=== PATIENT | female | born 1985 | race Caucasian/White ===

== ENCOUNTER 2021-08-22 18:23 | Outpatient (CLI) | payer MEDICAID, SELFPAY | END 2021-08-22 23:59 | disposition short-term general hospital (02) | PROVIDERS: Referring Provider Family Medicine; Visit Provider Family Medicine | DX: U07.1 COVID-19 (principal); Z20.822 Contact with and (suspected) exposure to COVID-19 | CPT/HCPCS: 87635; U0003; U0005 ==

== ENCOUNTER 2021-09-07 11:47 | Outpatient (CLI) | payer OTHER, SELFPAY ==
--- NOTE | 2021-09-07 11:55 | RAD_ITS ---
STUDY: X-RAY CHEST REASON FOR EXAM: Female, 36 years old. Fever and cough, Covid + TECHNIQUE: PA and lateral views of the chest. COMPARISON: None. FINDINGS: The lungs are clear and expanded. There is no demonstrated pleural abnormality. Normal size heart. Normal mediastinum and merna. Normal visualized pulmonary arteries. Normal visualized aortic arch and descending thoracic aorta. Normal visualized thoracic spine. Normal visualized ribs, clavicles, and shoulders. There is no demonstrated abnormality of the visualized soft tissue structures of the upper abdomen. RAD/Chest PA and Lateral IMPRESSION: Normal x-ray examination of the chest. Electronically Signed: Ramón Jung MD at 13:30 EST , Service support ,
[2021-09-07 15:11] LABS: Absolute Neutrophil Count 5.7 X10^3/uL (2.0-7.7); Basophil# 0.06 X10^3/uL; Basophil% 0.6 % (0-1); Eosinophil# 0.22 X10^3/uL; Eosinophils% 2.2 % (0-5); Hemoglobin 12.8 g/dL (12.0-15.0); Lymphocyte % 33.7 % (19-41); Mean Corpuscular Hgb 28.3 pg (27.0-32.0); Mean Corpuscular Volume 88.3 fL (81-99); Mean Platelet Vol. 9.5 fl (6.2-12.0); Monocyte# 0.62 X10^3/uL; Monocyte% 6.1 % (0-10); NRBC Flagged by Analyzer 0 % (0-5); Neutrophil # 5.72 X10^3/uL (2.7-7.7); Neutrophil % 56.6 % (47-70); Platelet Count 407 K/mm3 (150-450); RBC Distribution Width CV 11.9 % (11.6-14.6); RBC Distribution Width SD 38.3 fl (35.1-43.9); Red Blood Count 4.53 M/mm3 (4.2-5.4); White Blood Count 10.1 K/mm3 (4.4-11.0)
[2021-09-07 15:24] LABS: Anion Gap 8 (5-15); BUN 7 mg/dL (7-18); BUN/Creat Ratio 8.5 RATIO (10-20); Calcium,Total 9.1 mg/dL (8.5-10.1); Chloride 105 mmol/L (98-107); Creatinine, Serum 0.82 mg/dL (0.55-1.02); EST Glomerular Filtration Rate 83 mL/min (>60); Est Glom Filt Rate - Afr Amer 100 mL/min (>60); Glucose 76 mg/dL (74-106); Potassium 3.3 mmol/L (3.5-5.1); Sodium Level 138 mmol/L (136-145)
[2021-09-07 15:27] LABS: D-Dimer Quantitative (DVT/PE) 0.34 FEU/ug/m (0.27-0.49)
== END 2021-09-07 23:59 | disposition short-term general hospital (02) ==
LOC: MTLAB 11:53
PROVIDERS: PCP Family Medicine; Referring Provider Family Medicine; Visit Provider Family Medicine
DX: U09.9 Post COVID-19 condition, unspecified (principal)
CPT/HCPCS: 36415; 71046; 80048; 85025; 85379

== ENCOUNTER 2021-10-06 11:06 | Outpatient (CLI) | payer OTHER, SELFPAY ==
[2021-10-06 12:32] LABS: Anion Gap 7 (5-15); BUN 16 mg/dL (7-18); Chloride 104 mmol/L (98-107); Cholesterol 169 mg/dL (200); Creatinine, Serum 0.84 mg/dL (0.55-1.02); EST Glomerular Filtration Rate 80 mL/min (>60); Est Glom Filt Rate - Afr Amer 97 mL/min (>60); Glucose 80 mg/dL (74-106); High Density Lipoprotein 37 mg/dL; Potassium 3.8 mmol/L (3.5-5.1); Sodium Level 137 mmol/L (136-145); Thyroid Stim Hormone (TSH) 2.32 uIU/mL (0.358-3.74); Triglycerides 93 mg/dL; Very Low Density Lipoprotein 19 mg/dL (5-40)
[2021-10-08 09:41] LABS: Vitamin D,25 Hydroxy 16.5 ng/mL
== END 2021-10-06 23:59 | disposition home or self-care (01) ==
LOC: LAB 11:07
PROVIDERS: PCP Family Medicine; Referring Provider Family Medicine; Visit Provider Family Medicine
DX: Z00.00 Encounter for general adult medical examination without abnormal findings (principal); E87.6 Hypokalemia
CPT/HCPCS: 36415; 80048; 80061; 82306; 84443

== ENCOUNTER 2021-10-15 14:47 | Outpatient (CLI) | payer OTHER, SELFPAY ==
[2021-10-19 16:09] LABS: Age Gdln ACOG Testing 30-65 (.)
[2021-10-19 18:56] LABS: HPV APTIMA, High Risk Negative (Negative); HPV Reflexed? YES, CHARGE PATIENT
== END 2021-10-15 23:59 | disposition home or self-care (01) ==
LOC: LABSPEC 14:52
PROVIDERS: PCP Family Medicine; Referring Provider Family Medicine; Visit Provider Nurse Practitioner Family
DX: Z12.4 Encounter for screening for malignant neoplasm of cervix (principal)
CPT/HCPCS: 87624; 88175; G0145

== ENCOUNTER → 2022-04-29 | Outpatient (CLI) | payer OTHER, SELFPAY ==
[2022-04-29 18:21] LABS: AST(SGOT) 10 U/L (15-37); Alanine Aminotransfer ALT/SGPT 19 U/L (13-56); Albumin, Serum 3.8 g/dL (3.2-5.0); Alkaline Phosphatase 52 U/L (45-117); Anion Gap 7 (5-15); BUN 15 mg/dL (7-18); BUN/Creat Ratio 18.2 RATIO (10-20); Chloride 105 mmol/L (98-107); Creatinine, Serum 0.83 mg/dL (0.55-1.02); EST Glomerular Filtration Rate 82 mL/min (>60); Est Glom Filt Rate - Afr Amer 99 mL/min (>60); Glucose 87 mg/dL (74-106); Potassium 3.5 mmol/L (3.5-5.1); Protein, Total 7.8 g/dL (6.4-8.2); Sodium Level 140 mmol/L (136-145); Thyroid Stim Hormone (TSH) 2.92 uIU/mL (0.358-3.74)
== END | disposition home or self-care (01) ==
LOC: MFPLAB 16:35
PROVIDERS: PCP Family Medicine; Visit Provider Family Medicine
DX: E87.6 Hypokalemia (principal); E66.9 Obesity, unspecified
CPT/HCPCS: 36415; 80053; 84443

== ENCOUNTER 2022-12-13 20:20 | Emergency (ER) | payer OTHER, SELFPAY ==
[2022-12-13 20:21] VITALS: BP 99/64; PULSE 85; RESP 19; TEMP 37; O2SAT 100; BMI 35.0
[2022-12-13 20:41] VITALS: BP 89/58; BP 90/63; BP 95/68; PULSE 55; PULSE 56; PULSE 73
--- NOTE | 2022-12-13 20:41 | EKG12_ITS ---
Test Reason : SYNCOPE Blood Pressure : / mmHG Vent. Rate : 058 BPM Atrial Rate : 000 BPM P-R Int : 000 ms QRS Dur : 086 ms QT Int : 444 ms P-R-T Axes : 000 045 052 degrees QTc Int : 435 ms Atrial fibrillation with slow ventricular response with a competing junctional pacemaker Abnormal ECG Confirmed by BAN HUDSON, JIN ([id number]), editor & co founder SHUBHAM THOMASON ([id number]) on 12/16/2022 11:33:50 AM Referred By: Confirmed By:GENNY CEVALLOS MD
--- NOTE | 2022-12-13 20:42 | EX.ED.DYSGE1 ---
HPI History of Present Illness Chief Complaint: Alt LOC Narrative Narrative: 37-year-old female presenting with fatigue, weakness. She was out to dinner with her . She states that she took a 10 mg marijuana gummy which she normally takes. She had a couple sips of her gin mixed drink. She states it was too strong so she did not drink it. states there was three quarters of a glass left. On the patient's states that she started to get passed out in the seat. He states he was able to wake her up. No loss of bladder or bowel. She did not have any chest pain or shortness of breath. She denies any other drug or alcohol use. She states he has a history of syncope in the past. She also has history of hypokalemia. Patient also reports that she found a tick on the vertex of her head yesterday. She does not know how long its been there. She states it was engorged. Patient also complaining of abdominal pain in her lower abdomen which is mild. It is fairly diffuse. No urinary or vaginal complaints. [facility] Medical History (Updated 12/13/22 @ 20:25 by Melonie Turner) PTSD (post-traumatic stress disorder) Allergy/AdvReac Type Severity Reaction Status Date / Time No Known Allergies Allergy Verified 12/13/22 20:25 Social History Smoking Status: Former smoker EXAM Physical Exam Const Vital Signs: 12/13/22 20:21 12/13/22 20:41 12/13/22 21:20 Temperature 98.6 F Temperature Source Temporal Pulse Rate 85 78 Pulse Rate [Lying] 56 L Pulse Rate [Sitting (for 1 minute prior to obtaining)] 55 L Pulse Rate [Standing (for 1 minute prior to obtaining)] 73 Respiratory Rate 19 H 22 H Blood Pressure 99/64 92/69 Blood Pressure [Lying] 90/63 Blood Pressure [Sitting (for 1 minute prior to obtaining)] 95/68 Blood Pressure [Standing (for 1 minute prior to obtaining)] 89/58 L Blood Pressure Mean 75 76 Blood Pressure Mean [Lying] 72 Blood Pressure Mean [Sitting (for 1 minute prior to obtaining)] 77 Blood Pressure Mean [Standing (for 1 minute prior to obtaining)] 68 Pulse Ox 100 99 Oxygen Delivery Method Room Air Room Air 12/13/22 22:52 Temperature Temperature Source Pulse Rate 73 Pulse Rate [Lying] Pulse Rate [Sitting (for 1 minute prior to obtaining)] Pulse Rate [Standing (for 1 minute prior to obtaining)] Respiratory Rate 19 H Blood Pressure 89/58 L Blood Pressure [Lying] Blood Pressure [Sitting (for 1 minute prior to obtaining)] Blood Pressure [Standing (for 1 minute prior to obtaining)] Blood Pressure Mean 68 Blood Pressure Mean [Lying] Blood Pressure Mean [Sitting (for 1 minute prior to obtaining)] Blood Pressure Mean [Standing (for 1 minute prior to obtaining)] Pulse Ox 95 Oxygen Delivery Method Room Air MDM MDM MDM Narrative Medical decision making narrative: Patient presenting with weakness, her states she passed out on this front seat on the way home. Unclear if this was a syncopal event. Patient states she is very tired. She is alert and awake in no distress. No focal neurologic deficits or lateralizing signs or symptoms. Vital signs are stable and she is afebrile. EKG was obtained which shows a junctional rhythm at a rate of 58 bpm without sign of ischemic change on my interpretation. She states that this is her usual heart rate. As I went into the room to the heart monitor appears to be clearly a normal sinus rhythm at a rate of 85 bpm. Orthostatic vital signs were obtained and her blood pressures are normal. Her heart rate goes up about 17. She was given a liter of normal saline. Chest x-ray my interpretation shows no acute cardiopulmonary process. Radiologist services and agrees the shows a leukocytosis 11.2 without a left shift. Hemoglobin hematocrit are stable. Creatinine slightly elevated today at 1.15. Electrolytes unremarkable. Glucose 128 without anion gap. High-sensitivity troponin less than 3. hCG is negative. Urinalysis negative for infection. Urine drug screen positive for cannabinoids which the patient admits to. EtOH is 11. Patient is feeling improved but she does states he is sleepy. I feel she stable for discharge after she gets a liter of saline. Return precautions were discussed. Impression: 1. Generalized weakness 2. Dehydration 3. Altered mental status Lab Data Labs: Laboratory Results - last 24 hr 12/13/22 12/13/22 12/13/22 20:27 20:30 20:30 WBC 11.2 H RBC 4.65 Hgb 13.6 Hct 42.0 MCV 90.3 MCH 29.2 MCHC 32.4 RDW Std Deviation 39.1 RDW Coeff of Sanjay 12.0 Plt Count 319 MPV 9.4 Immature Gran % (Auto) 0.600 Neut % (Auto) 45.4 L Lymph % (Auto) 42.3 H Sevier % (Auto) 7.8 Eos % (Auto) 3.2 Baso % (Auto) 0.7 Absolute Neuts (auto) 5.1 Absolute Lymphs (auto) 4.75 H Nucleated RBC % 0 Sodium 134 L Potassium 3.7 Chloride 104 Carbon Dioxide 22.0 Anion Gap 8 BUN 12 Creatinine 1.15 H Estim Creat Clear Calc 51.95 Est GFR (MDRD) Af Amer 67 Est GFR (MDRD) Non-Af 56 L BUN/Creatinine Ratio 10.4 Glucose 128 H Calcium 9.1 Total Bilirubin 0.50 AST 19 ALT 25 Alkaline Phosphatase 59 Troponin I High Sens < 3 L Total Protein 8.3 H Albumin 4.0 Globulin 4.3 H Albumin/Globulin Ratio 0.9 Serum , Qual Urine Color Urine Clarity Urine pH Ur Specific Dorothy Urine Protein Urine Glucose (UA) Urine Ketones Urine Occult Blood Urine Nitrite Urine Bilirubin Urine Urobilinogen Ur Leukocyte Esterase Urine RBC Urine WBC Ur Squamous Epith Cells Urine Bacteria Urine Mucus Urine Opiates Screen Urine Methadone Screen Ur Barbiturates Screen Ur Phencyclidine Scrn Ur Amphetamines Screen MDMA (Ecstasy) Screen U Benzodiazepines Scrn Urine Cocaine Screen U Cannabinoids Screen Ur Drug Screen Comment Ethyl Alcohol POC Glucose 122 H 12/13/22 12/13/22 12/13/22 20:30 20:30 21:51 WBC RBC Hgb Hct MCV MCH MCHC RDW Std Deviation RDW Coeff of Sanjay Plt Count MPV Immature Gran % (Auto) Neut % (Auto) Lymph % (Auto) Sevier % (Auto) Eos % (Auto) Baso % (Auto) Absolute Neuts (auto) Absolute Lymphs (auto) Nucleated RBC % Sodium Potassium Chloride Carbon Dioxide Anion Gap BUN Creatinine Estim Creat Clear Calc Est GFR (MDRD) Af Amer Est GFR (MDRD) Non-Af BUN/Creatinine Ratio Glucose Calcium Total Bilirubin AST ALT Alkaline Phosphatase Troponin I High Sens Total Protein Albumin Globulin Albumin/Globulin Ratio Serum , Qual NEGATIVE Urine Color Urine Clarity Urine pH Ur Specific Dorothy Urine Protein Urine Glucose (UA) Urine Ketones Urine Occult Blood Urine Nitrite Urine Bilirubin Urine Urobilinogen Ur Leukocyte Esterase Urine RBC Urine WBC Ur Squamous Epith Cells Urine Bacteria Urine Mucus Urine Opiates Screen NEGATIVE Urine Methadone Screen NEGATIVE Ur Barbiturates Screen NEGATIVE Ur Phencyclidine Scrn NEGATIVE Ur Amphetamines Screen NEGATIVE MDMA (Ecstasy) Screen NEGATIVE U Benzodiazepines Scrn NEGATIVE Urine Cocaine Screen NEGATIVE U Cannabinoids Screen POSITIVE H Ur Drug Screen Comment Ethyl Alcohol 11.0 POC Glucose 12/13/22 21:51 WBC RBC Hgb Hct MCV MCH MCHC RDW Std Deviation RDW Coeff of Sanjay Plt Count MPV Immature Gran % (Auto) Neut % (Auto) Lymph % (Auto) Sevier % (Auto) Eos % (Auto) Baso % (Auto) Absolute Neuts (auto) Absolute Lymphs (auto) Nucleated RBC % Sodium Potassium Chloride Carbon Dioxide Anion Gap BUN Creatinine Estim Creat Clear Calc Est GFR (MDRD) Af Amer Est GFR (MDRD) Non-Af BUN/Creatinine Ratio Glucose Calcium Total Bilirubin AST ALT Alkaline Phosphatase Troponin I High Sens Total Protein Albumin Globulin Albumin/Globulin Ratio Serum , Qual Urine Color Yellow Urine Clarity Clear Urine pH 6.0 Ur Specific Dorothy 1.015 Urine Protein 30 H Urine Glucose (UA) Normal Urine Ketones Negative Urine Occult Blood 150 H Urine Nitrite Negative Urine Bilirubin Negative Urine Urobilinogen Normal Ur Leukocyte Esterase 25 H Urine RBC 0-5 SEEN Urine WBC 0-5 SEEN Ur Squamous Epith Cells 0-5 SEEN Urine Bacteria RARE Urine Mucus 0 SEEN Urine Opiates Screen Urine Methadone Screen Ur Barbiturates Screen Ur Phencyclidine Scrn Ur Amphetamines Screen MDMA (Ecstasy) Screen U Benzodiazepines Scrn Urine Cocaine Screen U Cannabinoids Screen Ur Drug Screen Comment Ethyl Alcohol POC Glucose Radiography Diagnostic Testing: Clinical Impression(s) from Imaging Studies Chest X-Ray 12/13/22 20:55 IMPRESSION: Normal x-ray examination of the chest. Electronically Signed: Tyrell Akbar MD at 21:14 EDT , Discharge Plan Triage Chief Complaint: Alt LOC ED Provider: Salvatore Johnson Dx/Rx/DC Orders Primary Care Provider: Seferino Agrawal Referrals: Seferino Agrawal MD [Primary Care Provider] -
[2022-12-13 20:45] LABS: Bedside Glucose 122 mg/dL (74-106)
--- NOTE | 2022-12-13 20:55 | RAD_ITS ---
STUDY: X-RAY CHEST REASON FOR EXAM: Female, 37 years old. syncope TECHNIQUE: Single AP portable view of the chest. COMPARISON: 09/07/2021 FINDINGS: The lungs are clear and expanded. There is no demonstrated pleural abnormality. Normal size heart. Normal mediastinum and merna. Normal visualized pulmonary arteries. Normal visualized aortic arch and descending thoracic aorta. Normal visualized thoracic spine. Normal visualized ribs, clavicles, and shoulders. There is no demonstrated abnormality of the visualized soft tissue structures of the upper abdomen. RAD/Chest 1 View (Portable) IMPRESSION: Normal x-ray examination of the chest. Electronically Signed: Tyrell Akbar MD at 21:14 EDT ,
[2022-12-13 21:00] LABS: Absolute Lymphocyte Count 4.75 X10^3/uL (0.83-4.51); Absolute Neutrophil Count 5.1 X10^3/uL (2.0-7.7); Basophil# 0.08 X10^3/uL; Basophil% 0.7 % (0-1); Eosinophil# 0.36 X10^3/uL; Eosinophils% 3.2 % (0-5); Hemoglobin 13.6 g/dL (12.0-15.0); Lymphocyte # 4.75 X10^3/ul (0.83-4.51); Lymphocyte % 42.3 % (19-41); Mean Corp Hgb Conc 32.4 g/dL (32-36); Mean Corpuscular Hgb 29.2 pg (27.0-32.0); Mean Corpuscular Volume 90.3 fL (81-99); Mean Platelet Vol. 9.4 fl (6.2-12.0); Monocyte# 0.88 X10^3/uL; Monocyte% 7.8 % (0-10); NRBC Flagged by Analyzer 0 % (0-5); Neutrophil # 5.08 X10^3/uL (2.7-7.7); Neutrophil % 45.4 % (47-70); Platelet Count 319 K/mm3 (150-450); RBC Distribution Width SD 39.1 fl (35.1-43.9); Red Blood Count 4.65 M/mm3 (4.2-5.4); White Blood Count 11.2 K/mm3 (4.4-11.0)
[2022-12-13 21:13] LABS: Internal QC Validated? YES +Cl - CLEAR BKGD; Pregnancy, Serum, hCG Quali. NEGATIVE Negative
[2022-12-13 21:20] VITALS: BP 92/69; PULSE 78; RESP 22; O2SAT 99
[2022-12-13 21:22] LABS: ALB/GLOB Ratio 0.9 RATIO (0.9-2.4); AST(SGOT) 19 U/L (15-37); Alanine Aminotransfer ALT/SGPT 25 U/L (13-56); Alkaline Phosphatase 59 U/L (45-117); Anion Gap 8 (5-15); BUN 12 mg/dL (7-18); BUN/Creat Ratio 10.4 RATIO (10-20); Calcium,Total 9.1 mg/dL (8.5-10.1); Chloride 104 mmol/L (98-107); Creatinine, Serum 1.15 mg/dL (0.55-1.02); EST Glomerular Filtration Rate 56 mL/min (>60); Est Glom Filt Rate - Afr Amer 67 mL/min (>60); Estimated Creatinine Clearance 51.95 ml/min; Globulin 4.3 g/dL (2.2-4.2); Glucose 128 mg/dL (74-106); Potassium 3.7 mmol/L (3.5-5.1); Protein, Total 8.3 g/dL (6.4-8.2); Sodium Level 134 mmol/L (136-145); Troponin-I HS < 3 pg/mL (3.0-54.0)
[2022-12-13 21:55] LABS: Mucous, Urine 0 SEEN /hpf (<or=2+)
[2022-12-13 21:56] LABS: Color, Urine Yellow (Yellow); Glucose, Dipstick Normal (Normal); Ketone-Dipstick Negative (Negative); Leukocyte Esterase-Dipstick 25 /ul (Negative); Nitrite-Dipstick Negative (Negative); Occult Blood-Urine 150 /ul (Negative); Protein-Dipstick 30 mg/dl (Negative); Specific Gravity, Urine 1.015 (1.002-1.030); Urine Bilirubin Dipstick Negative (Negative); Urine Clarity Clear (Clear); Urine Urobilinogen Normal (Normal)
[2022-12-13 22:02] LABS: White Blood Cells 0-5 SEEN /hpf (0-5)
[2022-12-13 22:03] LABS: Bacteria RARE /hpf (None Seen); Red Blood Cells-Urine 0-5 SEEN /hpf (0-5); Squamous Epithelial Cells - UA 0-5 SEEN /hpf (5-10)
[2022-12-13 22:07] LABS: Amphetamine Urine VISTA NEGATIVE (<1000 ng/mL); Barbiturate Urine VISTA NEGATIVE (< 200 ng/mL); Benzodiazepine Urine VISTA NEGATIVE (< 200 ng/mL); Cocaine Urine VISTA NEGATIVE (< 300 ng/mL); Ecstacy Urine VISTA NEGATIVE (< 500 ng/mL); Methadone Urine VISTA NEGATIVE (< 300 ng/mL); PCP Urine VISTA NEGATIVE (< 25 ng/mL); THC Urine VISTA POSITIVE (< 50 ng/mL); Vista UDS pH Range 6
[2022-12-13] MEDS: 0.9% Normal Saline 1,000 ML 999 ML IV (22:11)
[2022-12-13 22:52] VITALS: BP 89/58; PULSE 73; RESP 19; O2SAT 95
[2022-12-14 00:11] VITALS: BP 90/60; PULSE 81; RESP 18; O2SAT 94
== END 2022-12-14 00:39 | disposition home or self-care (01) ==
PROVIDERS: Emergency Provider Student in an Organized Health Care Education/Training Program; PCP Family Medicine; Visit Provider Student in an Organized Health Care Education/Training Program
DX: E86.0 Dehydration (principal); R10.30 Lower abdominal pain, unspecified; R41.82 Altered mental status, unspecified; Z87.891 Personal history of nicotine dependence; R55 Syncope and collapse
CPT/HCPCS: 71045; 80053; 80307; 81001; 82077; 82962; 84484; 84703; 85025; 93005; 96360; 96361; 99284; J7030

== ENCOUNTER → 2023-06-20 | Outpatient (CLI) | payer OTHER, SELFPAY ==
[2023-06-20 18:49] LABS: Anion Gap 5 (5-15); BUN 6 mg/dL (7-18); BUN/Creat Ratio 6.7 RATIO (10-20); Calcium,Total 8.9 mg/dL (8.5-10.1); Chloride 104 mmol/L (98-107); Creatinine, Serum 0.89 mg/dL (0.55-1.02); EST Glomerular Filtration Rate 75 mL/min (>60); Est Glom Filt Rate - Afr Amer 90 mL/min (>60); Free T3 2.3 pg/mL (2.18-3.98); Glucose 87 mg/dL (74-106); Luteinizing Hormone 4.2 mIU/mL; Potassium 3.6 mmol/L (3.5-5.1); Sodium Level 138 mmol/L (136-145); T4 Free Direct 0.92 ng/dL (0.76-1.46); Thyroid Stim Hormone (TSH) 2.42 uIU/mL (0.358-3.74)
[2023-06-25 15:08] LABS: Estrogen, Total, Serum 179 pg/mL (.); Lyme Scn Total Ab w/Rflx Negative (Negative)
== END | disposition home or self-care (01) ==
LOC: MFPLAB 16:05
PROVIDERS: PCP Family Medicine; Visit Provider Family Medicine
DX: E66.9 Obesity, unspecified (principal); E87.6 Hypokalemia; W57.XXXA Bitten or stung by nonvenomous insect and other nonvenomous arthropods, initial encounter
CPT/HCPCS: 36415; 80048; 82672; 83001; 83002; 84439; 84443; 84481; 86618

== ENCOUNTER 2023-11-03 08:00 | Outpatient (RCR) | payer OTHER, SELFPAY ==
--- NOTE | 2023-10-06 09:14 | HP.PTEVAL ---
Patient's Visit Information Visit Information Visit Information: JESSE BUTLER is a 38 year old F referred to Physical Therapy by Dr. Steve Molina DPM with a diagnosis of Lateral Ankle Instability. Date of Evaluation: 10/06/23 Physical Therapist: Coco Ramirez DPT Visit Plan Frequency: 2x /Week Duration: 4 Weeks Plan: 1x a week- Focus on HEP-Focus on LE and core strength/stabilization (Ankle Stabilization Ex, Planks, Ivorian Ball Exercises, Hamstring Ex)- Posterior Chain HEP Given IE: SLS, Sit to Stand, Gastroc Stretch Towel Subjective Subjective: Patient reports that she hikes a lot- she has been hiking her whole life- in Apr she started hiking to get herself up to 16 miles to increase elevation to do rim [place] rim in the [place]- no issues with her feet- uses [place] hiking shoes- normally uses trail runners. In March she was in [place] and was doing some rock scrambling and her left foot started to bother her- she drove 14 hours home- pain was on/off. 1.5 weeks later she did a 30 mile hike in [place] and the second day the pain was throbbing and the 3rd day was excruciating but she hiked through it. She contacted Dr. Molina and he thought it maybe a fracture- but then decided it might not be. Maybe OA. In May 2023 she did the rim [place] rim in the [place]- she only rolled her ankle one time- she uses poles- the rockier the area the more the pain. She went right into a boot- Cortisone injection and hard plate in the boot. Originally the pain was on the top of the foot between the 1st and 2nd toe. July he took her out of the boot and put her in a carbon fiber insert in her shoe for the first met. She woke up one morning and had bruising on the lateral aspect of her foot- she now has a small fracture on the lateral aspect of her foot. He said he may have to check her for osteopenia. She is now starting to have discomfort with eversion in the lateral ankle. She is no longer wearing the carbon fiber insert he gave her power steps. 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 She has not been on the TM since May and feels that she is loosing a lot of stamina. Normally at home she is barefoot. She feels it in the morning when she wakes up if she was active the day before. Worst: 4/10 Agg: eversion, moving around alot. Eases: nothing. Best: 0/10 Describes the pain as dull and achy. Does have some N/T but mostly just when she is sitting and when she adjusts it goes away. She reports that she rolls her ankles a lot and has for years. She does not wear ankle braces. She does not have any big hikes planned. She feels that her balance is really bad- she is partially blind. Sleep: not disturbed. Hoka's for her sneaker. She was doing lifting but has not doing anything since May. She feels that her foot is just staying the same. He mentioned possibly an MRI. She goes to the chiropractor for an adjustment every once in awhile PMHx/Meds: Objective Objective: Posture: forward head, rounded shoulders, can correct but does not maintain Gait: no deviation noted- does have mild valgus at the knees and pes planus without shoes inserts Sit to Stand: mild valgus HR/TR: able without pain SLS: 10 sec increased muscle activation and sway ROM: WFL in all planes of the LE Palpation: tender along lateral aspect of the malleolus ATFL Strength: Core: fair, Hip: 4/5 throughout, Knee: 4+/5, Ankle: 4/5 Flex: HS: moderate, Gastroc: moderate, Soleus: moderate Balance/Special Test Scores Lower Extremity Functional Score: 51 Goals Goal 1:: Patient will report participation in home exercise program activities a minimum of 5 days per week, as adjunct to skilled physical therapy intervention in preparation for independent home management upon discharge. Goal Time Frame: 4-6 Weeks Goal 2:: Patient will SLS without loss of balance for 30 sec Goal Time Frame: 4-6 Weeks Goal 3:: Patient will report no rolling of her ankles for 1 week Goal Time Frame: 4-6 Weeks Goal 4:: Patient will report 80% improvement Goal Time Frame: 4-6 Weeks Rehabilitation Potential Physical Therapy Diagnosis: Patient presents with increase ankle pain, decreased flexibility, strength and muscular endurance leading to decreased ability to perform ADL's and recreational activities. Rehabilitation Potential: Good Anticipated Interventions Patient/Client Instruction: Educate patient on: Benefits of Fitness Program Therapeutic Exercise to Include: Strength training, Endurance training, Balance training, Coordination, Agility training, Body mechanics, Postural training, Flexibilty training, Gait and locomotor training, Neuromotor development, Passive ROM, Active ROM, Dynamic Lumbar Stabilization and Scapular Strength/Stabilization For the Purpose of:: To improve muscle performance and motor function TENS: Yes Cryotherapy (ice pack, ice massage): Yes Thermo therapy (hot pack): Yes Ultrasound (thermal/non thermal): Yes Text: Thank you for the opportunity to evaluate your patient. For Medicare and Medicare HMO plans, please review the plan of care and approve it. It will need to be FAXED BACK to us at [phone] for Medicare purposes. For Medicare only, by signing this I certify the plan of care. Please let me know if there are questions or concerns regarding this plan of care. Physician Signature: Date:
--- NOTE | 2023-11-03 08:32 | HP.PTDCSUM_ITS ---
Discharge Summary D/C summary: It has been my pleasure to treat JESSE BUTLER referred by Dr. Steve Molina DPM, with the diagnosis of Lateral Ankle Instability for a total of 5 visit(s). Discharge Date: Please see the following information for a summary of their discharge status. Subjective Subjective: She does have discomfort when she moves it to the outside but not constantly- she sees the MD at 9:00 today. She feels that the exercises feel easy- she has challenges with the single leg squatting- can tell the difference between her legs. The exercises don't hurt- she has not noticed a huge difference in the amount of loss of balance. The TM is going okay- she has not continued to add incline. She feels that she is 70% improvement. She wants to continue HEP independently and see how she does. Pain Bilateral Ankle: Pain Intensity (Out of 10): 3 Overall Improvement % Improvement: 70 Objective Objective/Function: Objective: Posture: forward head, rounded shoulders, can correct but does not maintain Gait: no deviation noted- does have mild valgus at the knees and pes planus without shoes inserts Sit to Stand: mild valgus HR/TR: able without pain SLS: 15 sec increased muscle activation and sway ROM: WFL in all planes of the LE Palpation: tender along lateral aspect of the malleolus ATFL Strength: Core: fair, Hip: 4/5 throughout, Knee: 5/5, Ankle: 4+/5 pain with eversion Flex: HS: moderate, Gastroc: moderate, Soleus: moderate Goals Goal 1:: Patient will report participation in home exercise program activities a minimum of 5 days per week, as adjunct to skilled physical therapy intervention in preparation for independent home management upon discharge. Goal Progress: Goal Met Goal 2:: Patient will SLS without loss of balance for 30 sec Goal Progress: Progressing Goal 3:: Patient will report no rolling of her ankles for 1 week Goal Progress: Progressing Goal 4:: Patient will report 80% improvement Goal Progress: Progressing Plan Plan: 11/03/23: Discharge to HOP- encouraged to call if questions Initial POC: 1x a week- Focus on HEP-Focus on LE and core strength/stabilization (Ankle Stabilization Ex, Planks, Barbadian Ball Exercises, Hamstring Ex)- Posterior Chain D/C Information d/c sentence: If there are questions or concerns regarding this patient's physical therapy, please feel free to call me at [phone]. Thank you for the referral of this patient. Sincerely, Coco Ramirez, ASHERT Balance/Gait/Functional tests Balance/Special Test Scores Lower Extremity Functional Score: 59 Improvement % Improvement: 70
== END 2023-11-03 09:04 | disposition home or self-care (01) ==
LOC: PT 08:00
PROVIDERS: PCP Family Medicine; Referring Provider Podiatrist Foot & Ankle Surgery; Visit Provider Podiatrist Foot & Ankle Surgery
DX: M25.371 Other instability, right ankle (principal); M25.372 Other instability, left ankle
CPT/HCPCS: 97110; 97162

== ENCOUNTER → 2024-02-23 | Outpatient (CLI) | payer OTHER, SELFPAY ==
--- NOTE | 2024-02-23 11:00 | VDLE_ITS ---
Reason For Study: Leg Swelling RIGHT LEFT CFV is compressible, spontaneous, phasic, GSV is normal. competent and demonstrates normal CFV is compressible, spontaneous, phasic, augmentation. competent, and demonstrates normal Procedure augmentation. This is a venous duplex using B-mode, color FV is compressible, spontaneous, phasic, flow and spectral Doppler. competent and demonstrates normal Exam performed in department. augmentation. A preliminary report was called and/or faxed POP V is compressible, spontaneous, phasic, to Dr. Noguera. competent and demonstrates normal augmentation. T/P Trunk is compressible. PTV is compressible. LT PerV is compressible. VL/Venous Duplex US, Unilateral Interpretation Summary Deep veins of the left lower extremity are patent and compressible segmentally. There is no evidence of left lower extremity deep vein thrombosis. Valvular competence appears intac t within the proximal deep venous system on the left . The left great saphenous vein appears patent a nd compressible segmentally. The right common femoral vein is patent and compressible . Ordering Physician: Leonel Noguera Referring Physician: Seferino Agrawal Performed By: Caitlyn Bernal RVT and Student
== END | disposition home or self-care (01) ==
PROVIDERS: PCP Family Medicine; Referring Provider Family Medicine; Visit Provider Family Medicine
DX: M79.89 Other specified soft tissue disorders (principal)
CPT/HCPCS: 93971

== ENCOUNTER → 2025-06-27 | Outpatient (CLI) | payer OTHER, SELFPAY ==
[2025-06-27 09:44] LABS: Hematocrit 42.9 % (37-47); Hemoglobin 14.1 g/dL (12.0-15.0); Immature Granulocytes Count 0.040 X10^3/uL (0.0-0.0); Mean Corp Hgb Conc 32.9 g/dL (32-36); Mean Corpuscular Volume 89.9 fL (81-99); Mean Platelet Vol. 9.3 fl (6.2-12.0); NRBC Flagged by Analyzer 0 % (0-5); Platelet Count 288 K/mm3 (150-450); RBC Distribution Width CV 11.9 % (11.6-14.6); RBC Distribution Width SD 38.8 fl (35.1-43.9); Red Blood Count 4.77 M/mm3 (4.2-5.4); White Blood Count 8.3 K/mm3 (4.4-11.0)
[2025-06-27 10:44] LABS: AST(SGOT) 24 U/L (<=31); Alanine Aminotransfer ALT/SGPT 18 U/L (<=34); Albumin, Serum 4.7 g/dL (3.5-5.0); Alkaline Phosphatase 58 U/L (35-104); Anion Gap 11 (5-15); BUN 12 mg/dL (4-19); BUN/Creat Ratio 13.0 RATIO (10-20); Calcium,Total 9.7 mg/dL (7.6-11.0); Carbon Dioxide 27.5 mmol/L (21.0-32.0); Chloride 101 mmol/L (98-108); Cholesterol 179 mg/dL (<=200); Globulin 3.2 g/dL (2.2-4.2); Glucose 94 mg/dL (70-99); Low Density Lipoprotein Calc. 103 mg/dL; Potassium 3.7 mmol/L (3.3-5.1); Triglycerides 109 mg/dL; Very Low Density Lipoprotein 22 mg/dL (5-40); cholesterol:hdl ratio screen 3.15
[2025-06-29 12:08] LABS: HPV APTIMA, High Risk Negative (Negative)
== END | disposition home or self-care (01) ==
PROVIDERS: PCP Family Medicine; Visit Provider Advanced Practice Midwife
DX: Z12.4 Encounter for screening for malignant neoplasm of cervix (principal); R53.83 Other fatigue
CPT/HCPCS: 36415; 80053; 80061; 84439; 84443; 85025; 87624; 88175; G0145

== ENCOUNTER → 2025-07-15 | Outpatient (CLI) | payer OTHER, SELFPAY ==
--- NOTE | 2025-07-15 15:15 | BI_ITS ---
EXAM: SCRN MAMM (CAD)W/ANGELLA BILAT DATE: 07/15/2025 CLINICAL HISTORY: F, Age 40 y/o , SCREEN FOR BREAST CANCER TECHNIQUE: Procedure Code: [id number] Modality: MG Procedure: SCRN MAMM (CAD)W/ANGELLA BILAT COMPARISON: None. This is a baseline study. FINDINGS: TISSUE DENSITY: The breasts are heterogeneously dense, which may obscure small masses. Bilateral Breast Mammographic Findings: There is a 2 cm, spiculated, partially obscured, isodense mass in the superior medial, far posterior aspect of the left breast. Further workup is indicated. There is a 5 mm mass seen medial to the larger mass. Further workup is indicated. There is a 5 mm density in the retroareolar region, far anterior aspect of the right breast, best seen on the CC view. Further workup is indicated. A 4 mm nodular density in the lateral far posterior aspect of the left breast is noted. Further workup is indicated. BI/SCRN MAMM (CAD)W/ANGELLA BILAT IMPRESSION: There are 2 masses in the right breast and densities in both breasts requiring additional workup. Patient should return for LM views of the right and left breast as well as a rolled CC view of the left james [facility]. Spot compression views of the right breast masses and bilateral breast densities is also recommended. Breast ultrasounds may also be of value for further evaluation. OVERALL FINAL ASSESSMENT BI-RADS 0: INCOMPLETE - NEED ADDITIONAL IMAGING EVALUATION. RECOMMENDATION: Additional Views obtained/call backs Additional Recommendation none A letter with findings and recommendations will be mailed to the patient. Reading Location: [id number]
--- OUTSIDE RECORDS SUMMARY | 2025-07-15 15:23 | XMS RPT_ITS | CCD ---
Author Organization [facility] Care Team Providers Care Licensing Manager Name Role Phone APRIL GUTIÉRREZ Unavailable Unavailable APRIL GUTIÉRREZ Unavailable Unavailable Marli Goddard Attending Unavailable Seferino Agrawal Primary Care Unavailable Seferino Agrawal Referring Unavailable Marli Goddard Attending Unavailable Marli Goddard Referring Unavailable Seferino Agrawal Primary Care Unavailable Marli Goddard Attending Unavailable Seferino Agrawal Primary Care Unavailable Problems Problem Classification Problem Date Documented Da te Episodic/Chronic Malaise and fatigue (2 sources) Other fatigue; Translations: [Other fatigue] Onset: 06-27-2025 Episodic Other screening for suspected conditions (not mental disorders or infectious disease) (2 sources) Encounter for screening mammogram for malignant neoplasm of breast; Translations: [Encounter for screening mammogram for malignant neoplasm of breast] Onset: 06-27-2025 Episodic Results Test Name Value Interpretation Reference Range Facility PAP IG HPV APTIMA 16/18,45on 06-29-2025 ADEQ Comment Normal . [facility] Comment on above: Order Comment: Speci men Comment: [id number] Specimen Comment: No. of containers..01 ThinPrep Vial Result Comment: Sati sfactory for evaluation. Endocervical and/or squamous metaplastic cells (endocervical component) are present. Performed By: #### L 7400.0280 #### [facility] [address] [place], [place], [id number] COMM . Normal . [facility] Comment on above: Order Comment: Speci men Comment: [id number] Specimen Comment: No. of containers..01 ThinPrep Vial Performed By: #### L 7400.0280 #### [facility] [address] [place], [place], [id number] COMMENT Comment Normal . [facility] Comment on above: Order Comment: Speci men Comment: [id number] Specimen Comment: No. of containers..01 ThinPrep Vial Result Comment: This liquid based ThinPrep(R) pap test was interpreted using the Yumber(R) Genius(TM) Cervical Algorithm whole slide imaging system. Performed By: #### L 7400.0280 #### [facility] [address] [place], [place], [phone] DIAG Comment Normal . [facility] Comment on above: Order Comment: Speci men Comment: [id number] Specimen Comment: No. of containers..01 ThinPrep Vial Result Comment: NEGA TIVE FOR INTRAEPITHELIAL LESION OR MALIGNANCY. Performed By: #### L 7400.0280 #### [facility] [address] [place], [place], [id number] HPV APTIMA, HR Negative Normal Negative [facility] Comment on above: Order Comment: Speci men Comment: [id number] Specimen Comment: No. of containers..01 ThinPrep Vial Result Comment: This nucleic acid amplification test detects fourteen high- risk HPV types (16,18,31,33,35,39,45,51,52,56,58,59,66,68) without differentiation. Performed By: #### L 7400.0280 #### [facility] [address] [place], [place], [id number] HPV Jill Rfx Comment Normal . [facility] Comment on above: Order Comment: Speci men Comment: [id number] Specimen Comment: No. of containers..01 ThinPrep Vial Result Comment: Crit eria not met, HPV Genotype not performed. Performed at: - [address] [id number] [employer] Mechanical Engineer: Radha Park MD, Phone: [phone] Performed at: =[address] [id number] [employer] Mechanical Engineer: Radha Park MD, Phone: [phone] Performed By: #### L 7400.0280 #### [facility] [address] [place], [place], [phone] PAPSMR Comment Normal . [facility] Comment on above: Order Comment: Speci men Comment: [id number] Specimen Comment: No. of containers..01 ThinPrep Vial Result Comment: The Pap smear is a screening test designed to aid in the detection of premalignant and malignant conditions of the uterine cervix. It is not a diagnostic procedure and should not be used as the sole means of detecting cervical cancer. Both false-positive and false-negative reports do occur. Performed By: #### L 7400.0280 #### [facility] [address] [place], [place], [id number] PERFORM Comment Normal . [facility] Comment on above: Order Comment: Speci men Comment: [id number] Specimen Comment: No. of containers..01 ThinPrep Vial Result Comment: Hernando Cunningham, Jde Developer (ASCP) Performed By: #### L 7400.0280 #### [facility] [address] [place], [place], [phone] CBC W/Diff, Automatedon 11-1 0-5 Absolute Lymph 2.39 X10 3/uL Normal 0.83-4.51 [facility] Comment on above: Performed By: #### L 500.4050, L501.9520, L100.0100, L500.4100, L506.0400 #### [facility] [address] [place], [address] Absolute Neut 4.9 X10 3/uL Normal 2.0-7.7 [facility] Comment on above: Performed By: #### L 500.4050, L501.9520, L100.0100, L500.4100, L506.0400 #### [facility] [address] [place], [address] Basophils/100 WBC (Bld) 0.6 % Normal 0-1 [facility] Comment on above: Performed By: #### L 500.4050, L501.9520, L100.0100, L500.4100, L506.0400 #### [facility] [address] [place], [address] Eosinophils/100 WBC (Bld) 4.2 % Normal 0-5 [facility] Comment on above: Performed By: #### L 500.4050, L501.9520, L100.0100, L500.4100, L506.0400 #### [facility] [address] [place], [address] Erythrocyte distribution width (RBC) [Ratio] 11.9 % Normal 11.6-14.6 [facility] Comment on above: Performed By: #### L 500.4050, L501.9520, L100.0100, L500.4100, L506.0400 #### [facility] [address] [place], [address] Hematocrit (Bld) [Volume fraction] 42.9 % Normal 37-47 [facility] Comment on above: Performed By: #### L 500.4050, L501.9520, L100.0100, L500.4100, L506.0400 #### [facility] [address] [place], [address] Hemoglobin (Bld) [Mass/Vol] 14.1 g/dL Normal 12.0-15.0 [facility] Comment on above: Performed By: #### L 500.4050, L501.9520, L100.0100, L500.4100, L506.0400 #### [facility] [address] [place], [address] IG% 0.500 Normal 0.0-0.9 [facility] Comment on above: Result Comment: IG% - Immature Granulocytes (promyelocytes, myelocytes and metamyelocytes) > 1% indicates that a LEFT SHIFT is Present. Performed By: #### L 500.4050, L501.9520, L100.0100, L500.4100, L506.0400 #### [facility] [address] [place], [address] Lymphocytes/100 WBC (Bld) 28.7 % Normal 19-41 [facility] Comment on above: Performed By: #### L 500.4050, L501.9520, L100.0100, L500.4100, L506.0400 #### [facility] [address] [place], [address] MCH (RBC) [Entitic mass] 29.6 pg Normal 27.0-32.0 [facility] Comment on above: Performed By: #### L 500.4050, L501.9520, L100.0100, L500.4100, L506.0400 #### [facility] [address] [place], [address] MCHC (RBC) [Mass/Vol] 32.9 g/dL Normal 32-36 [facility] Comment on above: Performed By: #### L 500.4050, L501.9520, L100.0100, L500.4100, L506.0400 #### [facility] [address] [place], [address] MCV (RBC) [Entitic vol] 89.9 fL Normal 81-99 [facility] Comment on above: Performed By: #### L 500.4050, L501.9520, L100.0100, L500.4100, L506.0400 #### [facility] [address] [place], [address] Monocytes/100 WBC (Bld) 6.8 % Normal 0-10 [facility] Comment on above: Performed By: #### L 500.4050, L501.9520, L100.0100, L500.4100, L506.0400 #### [facility] [address] [place], [address] Neutrophils/100 WBC (Bld) 59.2 % Normal 47-70 [facility] Comment on above: Performed By: #### L 500.4050, L501.9520, L100.0100, L500.4100, L506.0400 #### [facility] [address] [place], [address] Nucleated RBC (Bld) [#/Vol] 0 10*3/uL Normal 0-5 [facility] Comment on above: Performed By: #### L 500.4050, L501.9520, L100.0100, L500.4100, L506.0400 #### [facility] [address] [place], [address] Platelet mean volume (Bld) [Entitic vol] 9.3 fL Normal 6.2-12.0 [facility] Comment on above: Performed By: #### L 500.4050, L501.9520, L100.0100, L500.4100, L506.0400 #### [facility] [address] [place], [address] Platelets (Bld) [#/Vol] 288 10*3/uL Normal 150-450 [facility] Comment on above: Performed By: #### L 500.4050, L501.9520, L100.0100, L500.4100, L506.0400 #### [facility] [address] [place], [address] RBC (Bld) [#/Vol] 4.77 10*6/uL Normal 4.2-5.4 [facility] Comment on above: Performed By: #### L 500.4050, L501.9520, L100.0100, L500.4100, L506.0400 #### [facility] [address] [place], [address] RDW SD 38.8 fl Normal 35.1-43.9 [facility] Comment on above: Performed By: #### L 500.4050, L501.9520, L100.0100, L500.4100, L506.0400 #### [facility] [address] [place], [address] WBC (Bld) [#/Vol] 8.3 10*3/uL Normal 4.4-11.0 [facility] Comment on above: Performed By: #### L 500.4050, L501.9520, L100.0100, L500.4100, L506.0400 #### [facility] [address] [place], [address] Comprehensive Metabolic Prof [facility] 06-27-2025 Albumin [Mass/Vol] 4.7 g/dL Normal 3.5-5.0 [facility] Comment on above: Performed By: #### L 500.4050, L501.9520, L100.0100, L500.4100, L506.0400 #### [facility] [address] [place], [address] Albumin/Globulin [Mass ratio] 1.4 {ratio} Normal 0.9-2.4 [facility] Comment on above: Performed By: #### L 500.4050, L501.9520, L100.0100, L500.4100, L506.0400 #### [facility] [address] [place], [address] ALK PHOS 58 U/L Normal 35-104 [facility] Comment on above: Performed By: #### L 500.4050, L501.9520, L100.0100, L500.4100, L506.0400 #### [facility] [address] [place], [address] ALT [Catalytic activity/Vol] 18 U/L Normal <=34 [facility] Comment on above: Performed By: #### L 500.4050, L501.9520, L100.0100, L500.4100, L506.0400 #### [facility] [address] [place], [address] AST [Catalytic activity/Vol] 24 U/L Normal <=31 [facility] Comment on above: Performed By: #### L 500.4050, L501.9520, L100.0100, L500.4100, L506.0400 #### [facility] [address] [place], [address] Bilirubin [Mass/Vol] 1.21 mg/dL Normal 0.00-1.30 [facility] Comment on above: Performed By: #### L 500.4050, L501.9520, L100.0100, L500.4100, L506.0400 #### [facility] [address] [place], [address] BUN/CRE 13.0 RATIO Normal 10-20 [facility] Comment on above: Performed By: #### L 500.4050, L501.9520, L100.0100, L500.4100, L506.0400 #### [facility] [address] [place], [address] Calcium [Mass/Vol] 9.7 mg/dL Normal 7.6-11.0 [facility] Comment on above: Performed By: #### L 500.4050, L501.9520, L100.0100, L500.4100, L506.0400 #### [facility] [address] [place], [address] Chloride [Moles/Vol] 101 mmol/L Normal 98-108 [facility] Comment on above: Performed By: #### L 500.4050, L501.9520, L100.0100, L500.4100, L506.0400 #### [facility] [address] [place], [address] CO2 [Moles/Vol] 27.5 mmol/L Normal 21.0-32.0 [facility] Comment on above: Performed By: #### L 500.4050, L501.9520, L100.0100, L500.4100, L506.0400 #### [facility] [address] [place], [address] Creatinine [Mass/Vol] 0.88 mg/dL Normal 0.70-1.20 [facility] Comment on above: Performed By: #### L 500.4050, L501.9520, L100.0100, L500.4100, L506.0400 #### [facility] [address] [place], [address] GAP 11 Normal 5-15 [facility] Comment on above: Performed By: #### L 500.4050, L501.9520, L100.0100, L500.4100, L506.0400 #### [facility] [address] [place], [address] GFR/1.73 sq M.predicted among non-blacks MDRD (S/P/Bld) [Vol rate/Area] 84 mL/min/{1.73_m2} Normal >60 [facility] Comment on above: Result Comment: mL/m in/1.73m2 CKD-EPI Creatinine Equation (2020) Performed By: #### L 500.4050, L501.9520, L100.0100, L500.4100, L506.0400 #### [facility] [address] [place], [address] Globulin (S) [Mass/Vol] 3.2 g/dL Normal 2.2-4.2 [facility] Comment on above: Performed By: #### L 500.4050, L501.9520, L100.0100, L500.4100, L506.0400 #### [facility] [address] [place], [address] Glucose [Mass/Vol] 94 mg/dL Normal 70-99 [facility] Comment on above: Performed By: #### L 500.4050, L501.9520, L100.0100, L500.4100, L506.0400 #### [facility] [address] [place], [address] Potassium [Moles/Vol] 3.7 mmol/L Normal 3.3-5.1 [facility] Comment on above: Performed By: #### L 500.4050, L501.9520, L100.0100, L500.4100, L506.0400 #### [facility] [address] [place], [address] Sodium [Moles/Vol] 139 mmol/L Normal 133-145 [facility] Comment on above: Performed By: #### L 500.4050, L501.9520, L100.0100, L500.4100, L506.0400 #### [facility] [address] [place], [address] T PROT 7.9 g/dL Normal 5.9-8.4 [facility] Comment on above: Performed By: #### L 500.4050, L501.9520, L100.0100, L500.4100, L506.0400 #### [facility] [address] [place], [address] Urea nitrogen [Mass/Vol] 12 mg/dL Normal 4-19 [facility] Comment on above: Performed By: #### L 500.4050, L501.9520, L100.0100, L500.4100, L506.0400 #### [facility] [address] [place], [address] Lipid Profileon 06-27-2025 CHOL:HDL 3.15 Normal [facility] Comment on above: Performed By: #### L 500.4050, L501.9520, L100.0100, L500.4100, L506.0400 #### [facility] [address] [place], [address] Cholesterol [Mass/Vol] 179 mg/dL Normal <=200 [facility] Comment on above: Result Comment: Chol esterol level, Desirable <200 mg/dL Borderline high cholesterol 200-239 mg/dL High cholesterol >=240 mg/dL Recommendations of the NCEP Adult Treatment Panel for the following risk-cutoff thresholds for the [place] population. Performed By: #### L 500.4050, L501.9520, L100.0100, L500.4100, L506.0400 #### [facility] [address] [place], [address] Cholesterol in HDL [Mass/Vol] 57 mg/dL Normal [facility] Comment on above: Result Comment: Hetal onal Cholesterol Education Program (NCEP) guidelines: <40 mg/dL: Low HDL-cholesterol (major risk factor for CHD) >= 60 mg/dL: High HDL-cholesterol (negative risk factor for CHD) HDL-cholesterol is affected by a number of factors, e.g. smoking, exercise, hormones, sex and age. Performed By: #### L 500.4050, L501.9520, L100.0100, L500.4100, L506.0400 #### [facility] [address] [place], [address] Cholesterol in LDL [Mass/Vol] 103 mg/dL Normal [facility] Comment on above: Result Comment: Bord huhqkd=855-046 mg/dL Higher Xtfk=444 mg/dL or greater Woodard Equation 2020 for LDL-C Performed By: #### L 500.4050, L501.9520, L100.0100, L500.4100, L506.0400 #### [facility] [address] [place], [address] Cholesterol in VLDL [Mass/Vol] 22 mg/dL Normal 5-40 [facility] Comment on above: Performed By: #### L 500.4050, L501.9520, L100.0100, L500.4100, L506.0400 #### [facility] [address] [place], [address] Triglyceride [Mass/Vol] 109 mg/dL Normal [facility] Comment on above: Result Comment: The drugs N-Acetylcysteine and Metamizole may falsely depress this assay. Normal range: <150 mg/dL Borderline High: 150-199 mg/dL High: 200-499 mg/dL Very High: >500 mg/dL Performed By: #### L 500.4050, L501.9520, L100.0100, L500.4100, L506.0400 #### [facility] [address] 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: No Is patient in pain?: No Allergies No Known Allergies Allergy (Verified 06/27/25 08:07) Medications ???Medication ???Instructions ???Recorded ???Confirmed ???Type NK 06/27/25 06/27/25 History Is last menstrual period known: Yes Last Menstrual Period: 06/11/25 Post menopausal: No Patient : No : No Control Method: boyfriend cannot concieve [facility] Medical History (Updated 06/27/25 @ 08:17 by Sujata Beck) Hypokalemia Bradycardia Low blood sugar PTSD (post-traumatic stress disorder) Family History (Updated 06/27/25 @ 08:18 by Sujata Beck) Grandmother Breast cancer Father Thyroid disorder Social History adopted: No household members: spouse number of children: 2 current occupational status: employed 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 current occupational exposures/hazards: No pets and animals: Yes leisure activities: sports history of recent travel: Yes sexually active: Yes Smoking Status: Former smoker how long ago did patient quit smokin yrs ago well-balanced diet: daily or most days caffeine: Yes Type: coffee eating out: rarely or never during the past year weight has: other frequency: 3-4 times per week duration: other seatbelt use: always do you feel safe at home: Yes History 3 Elective abortions Hx Para 2 Spontaneous abortions 1 Hx # Term Pregnancies Ectopic pregnancies Hx # Pregnancies Multiple births # of living children 2 Past Pregnancies Del. Date Name GA/Weeks Outcome Route Bth Weight Gen Labor Lgth Anesthesia Del Locatn Provider FOB Unknown 2000 live - full term Female Karen Gotti nd Unknown 2005 live - full term Male [place] Delivery Date: Last Updated by: Sujata Beck defect; leg. autism HPI Encounter for routine gynecological examination Details: JESSE BUTLER is a 40 year old who presents for annual exam. noticing differences in left breast tissue and occasional breast pain. denies discharge, family hx of breast caner- paternal grandma (70s). Concerns with perimenopause due to lengthening of menstrual cycles and concerns with weight. Last PAP: 2021; ASCUS. HPV neg History of abnormal PAP: 2021 ASCUS Last mammogram: due History of abnormal mammogram: n/a Colon cancer screening: age 43 Other preventative health care screenings: Dr. Agrawal; PCP Female Reproductive History Last Menstrual Period: 06/11/25 Cycle Length: 21-35 Bleeding Duration: 2 Questions: metrorrhagia: No, sexually active: Yes, dyspareunia: No and PCB: No Menopausal Symptoms: Yes night sweats, Yes weight change and Yes sleep problems ROS Const Constitutional: Reports system reviewed and no additional complaints, except as documented and night sweats Cardio Card: Reports system reviewed and no additional complaints, except as documented Resp Resp: Reports system reviewed and no additional complaints, except as documented GI GI: Reports system reviewed and no additional complaints, except as documented : Reports system reviewed and no additional complaints, except as documented; Denies difficulty voiding, dysuria or urinary frequency Skin Skin/Breast: Reports system reviewed and no additional complaints, except as documented Neuro Neuro: Reports system reviewed and no additional complaints, except as documented Psych Psych: Reports system reviewed and no additional complaints, except as documented; Denies anhedonia, anxiety or depression Exam Const General: cooperative, healthy appearing, comfortable and no acute distress Orientation: alert, awake and oriented x3 Neck Neck: normal visual inspection and full ROM Thyroid: thyroid normal Chest Breast inspection: normal inspection of the breasts and normal inspection of the axillae Breast palpation: normal palpation of the breasts and normal palpation of the axillae Resp Effort Inspection: normal respiratory effort, able to speak in complete sentences and symmetric chest movement GI Inspection: normal to inspection Palpation: soft Rectal Exam: visual inspection normal External Female Exam: normal external appearance and normal appearance of the urethra Ureth (more content not included)... Normal [facility] T4 Free Directon 06-27-2025 T4 FREE DIRECT 1.10 ng/dL Normal 0.76-1.46 [facility] Comment on above: Performed By: #### L 500.4050, L501.9520, L100.0100, L500.4100, L506.0400 #### [facility] [address] [place], [place], [id number] Thyroid Stim Hormone (TSH)on 06-27-2025 TSH 2.210 uIU/mL Normal 0.300-4.200 [facility] Comment on above: Performed By: #### L 500.4050, L501.9520, L100.0100, L500.4100, L506.0400 #### [facility] [address] [place], [address] Basophil percentageOrdered B y: Seferino Agrawal on 06-20-2023 Chloride [Moles/Vol] 104 mmol/L 98-107 [facility] Glucose [Mass/Vol] 87 mg/dL 74-106 [facility] Potassium [Moles/Vol] 3.6 mmol/L 3.5-5.1 [facility] Sodium [Moles/Vol] 138 mmol/L 136-145 [facility] - Chemistry and C hemistry - challengeOrdered By: Seferino Agrawal on 06-20-2023 CO2 [Moles/Vol] 29.0 mmol/L 21.0-32.0 [facility] Free T4 [Mass/Vol] 0.92 ng/dL 0.76-1.46 [facility] Urea nitrogen/Creatinine [Mass ratio] 6.7 mg/mg 10-20 [facility] No Panel InformationOrdered By: Seferino Agrawal on 06-20-2023 Estimated GFR (MDRD) Amer 90 mL/min >60 [facility] Comment on above: GFR Calc Estimated GFR (MDRD) Non-Af Amer 75 mL/min >60 [facility] Comment on above: Non- GFR Calc Follicle Stimulating Hormone 6.0 mIU/mL [facility] Comment on above: NORMAL REFERENCE RAN GES FEMALE FOLLICULAR 2.3 - 12.6 mIU/mL MID-CYCLE PEAK 5.2 - 17.5 mIU/mL LUTEAL 1.7 - 12.9 mIU/mL POST-MENOPAUSAL ON MHT 5.9 - 72.8 mIU/mL NOT ON MHT 12.7 - 132.2 mlU/mL MALE 0.7 - 10.8 mIU/mL Free Triiodothyronine (T3) pg/dL 2.3 pg/mL 2.18-3.98 [facility] Luteinizing Hormone 4.2 mIU/mL [facility] Comment on above: NORMAL REFERENCE RAN GES FEMALE FOLLICULAR 1.9 - 26.2 mIU/mL MID-CYCLE PEAK 22.8 - 76.1 mIU/mL LUTEAL 0.6 - 16.6 mIU/mL POST-MENOPAUSAL ON MHT 1.1 - 52.4 mIU/mL NOT ON MHT 8.6 - 61.8 mIU/mL MALE 1.2 - 10.6 mIU/mL Thyroid Stimulating Hormone (TSH) 2.42 uIU/mL 0.358-3.74 [facility] Serum or plasma calcium reed urement (mass/volume)Ordered By: Seferino Agrawal on 06-20-2023 Calcium [Mass/Vol] 8.9 mg/dL 8.5-10.1 [facility] Serum or plasma creatinine m easurement (mass/volume)Ordered By: Seferino Agrawal on 06-20-2023 Creatinine [Mass/Vol] 0.89 mg/dL 0.55-1.02 [facility] Comment on above: The validity of the calculated GFR & GFRAA in patients over 70 years has not been determined. Clinical correlation is essential. Serum or plasma urea nitroge n measurement (mass/volume)Ordered By: Seferino Agrawal on 06-20-2023 Urea nitrogen [Mass/Vol] 6 mg/dL 7-18 [facility] Thin prep Papanicolaou smear with manual screeningOrdered By: Seferino Agrawal on 06-20-2023 Thin prep Papanicolaou smear with manual screening 5 5-15 [facility] Absolute lymphocyte countOrd ered By: Dr. Johnson on 12-13-2022 Lymphocytes Auto (Unsp spec) [#/Vol] 4.75 10*3/uL 0.83-4.51 [facility] Basophil percentageOrdered B y: Dr. Johnson on 12-13-2022 Basophil percentage 0-5 SEEN /hpf 0-5 [facility] Basophils/100 WBC (Bld) 0.7 % 0-1 [facility] Bilirubin [Mass/Vol] 0.50 mg/dL 0.20-1.00 [facility] Comment on above: For patients on eltr ombopag therapy, use of Dimension [place] TBIL is not recommended. Chloride [Moles/Vol] 104 mmol/L 98-107 [facility] Eosinophils/100 WBC (Bld) 3.2 % 0-5 [facility] Glucose [Mass/Vol] 128 mg/dL 74-106 [facility] Comment on above: Fasting Glucose resu lt greater than or equal to 126 mg/dL suggests DIABETES MELLITUS per A.D.A. criteria. Neutrophils (Bld) [#/Vol] 5.1 10*3/uL 2.0-7.7 [facility] Neutrophils/100 WBC (Bld) 45.4 % 47-70 [facility] Potassium [Moles/Vol] 3.7 mmol/L 3.5-5.1 [facility] Protein [Mass/Vol] 8.3 g/dL 6.4-8.2 [facility] Sodium [Moles/Vol] 134 mmol/L 136-145 [facility] WBC (Bld) [#/Vol] 11.2 10*3/uL 4.4-11.0 [facility] Beta hCG serum qualOrdered B y: Dr. Johnson on 12-13-2022 Beta HCG ( test) Ql Negative [facility] Bilirubin Test strip Ql (U)O rdered By: Dr. Johnson on 12-13-2022 Bilirubin Ql (U) Negative Negative [facility] Blood erythrocytes count (nu mber/volume)Ordered By: Dr. Johnson on 12-13-2022 RBC (Bld) [#/Vol] 4.65 10*6/uL 4.2-5.4 [facility] Blood hemoglobin measurement (mass/volume)Ordered By: Dr. Johnson on 12-13-2022 Hemoglobin (Bld) [Mass/Vol] 13.6 g/dL 12.0-15.0 [facility] Blood lymphocytes/100 leukoc ytesOrdered By: Dr. Johnson on 12-13-2022 Lymphocytes/100 WBC (Bld) 42.3 % 19-41 [facility] Blood monocytes/100 leukocyt esOrdered By: Dr. Johnson on 12-13-2022 Monocytes/100 WBC (Bld) 7.8 % 0-10 [facility] Blood platelet mean volumeOr dered By: Dr. Johnson on 12-13-2022 Platelet mean volume (Bld) [Entitic vol] 9.4 fL 6.2-12.0 [facility] Determination of erythrocyte mean corpuscular volume (MCV)Ordered By: Dr. Johnson on 12-13-2022 MCV (RBC) [Entitic vol] 90.3 fL 81-99 [facility] Glucose Glucometer (BldC) [M ass/Vol]Ordered By: Dr. Johnson on 12-13-2022 Glucose [Mass/Vol] 122 mg/dL 74-106 [facility] Comment on above: MANAGEMENT OF PATIEN T CARE PER NURSING PROTOCOL Hematocrit Auto (Bld) [Volum e fraction]Ordered By: Dr. Johnson on 12-13-2022 Hematocrit (Bld) [Volume fraction] 42.0 % 37-47 [facility] Ketones Test strip Ql (U)Ord ered By: Dr. Johnson on 12-13-2022 Ketones Ql (U) Negative Negative [facility] Laboratory - Chemistry and C hemistry - challengeOrdered By: Dr. Johnson on 12-13-2022 ALP [Catalytic activity/Vol] 59 U/L 45-117 [facility] ALT [Catalytic activity/Vol] 25 U/L 13-56 [facility] CO2 [Moles/Vol] 22.0 mmol/L 21.0-32.0 [facility] Globulin (S) [Mass/Vol] 4.3 g/dL 2.2-4.2 [facility] Urea nitrogen/Creatinine [Mass ratio] 10.4 mg/mg 10-20 [facility] Laboratory - Drug toxicology Ordered By: Dr. Johnson on 12-13-2022 Amphetamines Ql (U) Negative <1000 ng/mL [facility] Benzodiazepines Ql (U) Negative < 200 ng/mL [facility] Cannabinoids Screen Ql (U) Positive < 50 ng/mL [facility] Cocaine Ql (U) Negative < 300 ng/mL [facility] Opiates Ql (U) Negative < 300 ng/mL [facility] Laboratory - Hematology and Cell countsOrdered By: Dr. Johnson on 12-13-2022 Erythrocyte distribution width (RBC) [Entitic vol] 39.1 fL 35.1-43.9 [facility] Erythrocyte distribution width (RBC) [Ratio] 12.0 % 11.6-14.6 [facility] Immature granulocytes/100 WBC (Bld) 0.600 % 0.0-0.9 [facility] Comment on above: IG% - Immature Granu locytes (promyelocytes, myelocytes and metamyelocytes) > 1% indicates that a LEFT SHIFT is Present. MCH (RBC) [Entitic mass] 29.2 pg 27.0-32.0 [facility] Nucleated RBC/100 WBC (Bld) [Ratio] 0 % 0-5 [facility] MCHC Auto (RBC) [Mass/Vol]Or dered By: Dr. Johnson on 12-13-2022 MCHC (RBC) [Mass/Vol] 32.4 g/dL 32-36 [facility] Mucus LM Ql (Urine sed)Order ed By: Dr. Johnson on 12-13-2022 Mucus Ql (Urine sed) 0 SEEN /hpf [facility] Nitrite Test strip Ql (U)Ord ered By: Dr. Johnson on 12-13-2022 Nitrite Ql (U) Negative Negative [facility] No Panel InformationOrdered By: Dr. Johnson on 12-13-2022 MDMA (Ecstasy) Screen Negative < 500 ng/mL [facility] Urine Barbiturates Screen Negative < 200 ng/mL [facility] Urine Drug Screen Comment [facility] Comment on above: CONFIRMATORY TESTING FOR ALL POSITIVE URINE DRUG SCREENRESULTS WILL ONLY BE SENT OUT UPON PHYSICIAN ORDER. VISTA Urine Drug Screen methods provide only preliminaryanalytical test results. A more specific alternate chemicalmethod must be used in order to obtain a confirmedanalytical result. Gas chromatography/mass spectrometery(GC/MS) is the preferred confirmatory method. Clinicalconsideration and professional judgement should be appliedto any drug of abuse test result, particularly whenpreliminary positive results are used. URINE TCA TESTING MUST BE ORDERED SEPARATELY. USE TESTMNEMONIC: [facility] Urine Methadone Screen Negative < 300 ng/mL [facility] Estimated Creatinine Clearance Calc 51.95 ml/min [facility] Estimated GFR (MDRD) Amer 67 mL/min >60 [facility] Comment on above: GFR Calc Estimated GFR (MDRD) Non-Af Amer 56 mL/min >60 [facility] Comment on above: Non- GFR Calc Ethyl Alcohol Level 11.0 mg/dL [facility] Comment on above: The serum:whole bloo d ethanol ratio is approximately 1.14and varies slightly with hematocrit. Medical Alcohol reference interval and critical value innon-tolerant individuals; 50 - 100 Impairment 100 Intoxication 100 - 250 Severe Poisoning 250 - 400 Deep/possible fatal coma Troponin I High Sensitivity < 3 pg/mL 3.0-54.0 [facility] Comment on above: Please Note: New Jessica t Units and Gender Specific Reference Ranges. For more information see Policy Stat Procedure [place] High Sensitivity Troponin (TNIH) and attachments. Platelets bldOrdered By: Dr. Johnson on 12-13-2022 Platelets (Bld) [#/Vol] 319 10*3/uL 150-450 [facility] Protein Test strip Ql (U)Ord ered By: Dr. Johnson on 12-13-2022 Protein Ql (U) 30 mg/dl Negative [facility] Serum or plasma albumin reed urement (mass/volume)Ordered By: Dr. Johnson on 12-13-2022 Albumin [Mass/Vol] 4.0 g/dL 3.2-5.0 [facility] Serum or plasma albumin/glob ulin mass ratioOrdered By: Dr. Johnson on 12-13-2022 Albumin/Globulin [Mass ratio] 0.9 {ratio} 0.9-2.4 [facility] Serum or plasma calcium reed urement (mass/volume)Ordered By: Dr. Johnson on 12-13-2022 Calcium [Mass/Vol] 9.1 mg/dL 8.5-10.1 [facility] Serum or plasma creatinine m easurement (mass/volume)Ordered By: Dr. Johnson on 12-13-2022 Creatinine [Mass/Vol] 1.15 mg/dL 0.55-1.02 [facility] Comment on above: The validity of the calculated GFR & GFRAA in patients over 70 years has not been determined. Clinical correlation is essential. Serum or plasma urea nitroge n measurement (mass/volume)Ordered By: Dr. Johnson on 12-13-2022 Urea nitrogen [Mass/Vol] 12 mg/dL 7-18 [facility] Squamous epithelial cells de tection in urine sediment by light microscopyOrdered By: Dr. Johnson on 12-13-2022 Epithelial cells.squamous LM Ql (Urine sed) 0-5 SEEN /hpf 5-10 [facility] Thin prep Papanicolaou smear with manual screeningOrdered By: Dr. Johnson on 12-13-2022 Thin prep Papanicolaou smear with manual screening 19 U/L 15-37 [facility] Thin prep Papanicolaou smear with manual screening 8 5-15 [facility] Urine blood detectionOrdered By: Dr. Johnson on 12-13-2022 RBC Ql (U) 150 /ul Negative [facility] RBC Ql (U) 0-5 SEEN /hpf 0-5 [facility] Urine clarityOrdered By: Dr. Johnson on 12-13-2022 Clarity (U) Clear Clear [facility] Urine color determinationOrd ered By: Dr. Johnson on 12-13-2022 Color (U) Yellow Yellow [facility] Urine glucose detectionOrder ed By: Dr. Johnson on 12-13-2022 Glucose Ql (U) Normal mg/dl Normal [facility] Urine leukocyte esterase det ection by dipstickOrdered By: Dr. Johnson on 12-13-2022 Leukocyte esterase Test strip Ql (U) 25 /ul Negative [facility] Urine pHOrdered By: Dr. Jai lion on 12-13-2022 pH (U) 6.0 [pH] 5.0 - 8.0 [facility] Urine phencyclidine (PCP) de tectionOrdered By: Dr. Johnson on 12-13-2022 Phencyclidine Ql (U) Negative < 25 ng/mL [facility] Urine sediment bacteria coun t by microscopy (number/high power field)Ordered By: Dr. Johnson on 12-13-2022 Bacteria LM.HPF (Urine sed) [#/Area] RARE /hpf None Seen [facility] Urine specific gravity measu rementOrdered By: Dr. Johnson on 12-13-2022 Specific gravity (U) [Rel density] 1.015 1.002-1.030 [facility] Urobilinogen Auto test strip Ql (U)Ordered By: Dr. Johnson on 12-13-2022 Urobilinogen Ql (U) Normal mg/dl Normal [facility] Basophil percentageon 2021 Bilirubin [Mass/Vol] 0.50 mg/dL 0.20-1.00 [facility] Work Phone: Comment on above: For patients on eltr ombopag therapy, use of Dimension [place] TBIL is not recommended. Chloride [Moles/Vol] 105 mmol/L 98-107 [facility] Work Phone: Glucose [Mass/Vol] 87 mg/dL 74-106 [facility] Work Phone: Potassium [Moles/Vol] 3.5 mmol/L 3.5-5.1 [facility] Work Phone: Protein [Mass/Vol] 7.8 g/dL 6.4-8.2 [facility] Work Phone: Sodium [Moles/Vol] 140 mmol/L 136-145 [facility] Work Phone: Laboratory - Chemistry and C hemistry - challengeon 04-29-2022 ALP [Catalytic activity/Vol] 52 U/L 45-117 [facility] Work Phone: ALT [Catalytic activity/Vol] 19 U/L 13-56 [facility] Work Phone: CO2 [Moles/Vol] 28.0 mmol/L 21.0-32.0 [facility] Work Phone: Globulin (S) [Mass/Vol] 4.0 g/dL 2.2-4.2 [facility] Work Phone: Urea nitrogen/Creatinine [Mass ratio] 18.2 mg/mg 10-20 [facility] Work Phone: No Panel Informationon 04-29 Estimated GFR (MDRD) Amer 99 mL/min >60 [facility] Work Phone: Comment on above: GFR Calc Estimated GFR (MDRD) Non-Af Amer 82 mL/min >60 [facility] Work Phone: Comment on above: Non- GFR Calc Thyroid Stimulating Hormone (TSH) 2.92 uIU/mL 0.358-3.74 [facility] Work Phone: Serum or plasma albumin reed urement (mass/volume)on 04-29-2022 Albumin [Mass/Vol] 3.8 g/dL 3.2-5.0 [facility] Work Phone: Serum or plasma albumin/glob ulin mass ratioon 04-29-2022 Albumin/Globulin [Mass ratio] 1.0 {ratio} 0.9-2.4 [facility] Work Phone: Serum or plasma calcium reed urement (mass/volume)on 04-29-2022 Calcium [Mass/Vol] 9.0 mg/dL 8.5-10.1 [facility] Work Phone: Serum or plasma creatinine m easurement (mass/volume)on 04-29-2022 Creatinine [Mass/Vol] 0.83 mg/dL 0.55-1.02 [facility] Work Phone: Comment on above: The validity of the calculated GFR & GFRAA in patients over 70 years has not been determined. Clinical correlation is essential. Serum or plasma urea nitroge n measurement (mass/volume)on 04-29-2022 Urea nitrogen [Mass/Vol] 15 mg/dL 7-18 [facility] Work Phone: Thin prep Papanicolaou smear with manual screeningon 04-29-2022 Thin prep Papanicolaou smear with manual screening 10 U/L 15-37 [facility] Work Phone: Thin prep Papanicolaou smear with manual screening 7 5-15 [facility] Work Phone: BASICMETAon 09-27-2017 BUN/Creatinine Ratio 12.3 mg/mg Normal [facility] Comment on above: Performed By: #### 1 [id number], [id number], [id number] ####[facility] [id number] [place] [address] Medical Director: Devan Holguin MD eGFR (non-black) mL/min/{1.73_m2} Normal So [facility] Comment on above: Result Comment: Afri can O[place]i GFR Calc Performed By: #### 1 [id number], [id number], [id number] ####[facility] [id number] [place] [address] Medical Director: Deavn Holguin MD Result Comment: Non GFR CalcMedical judgement is necessary to interpret GFR. The calculated GFR may not accurately reflect renal status in patients >70 years, women, acutely ill hospitalized patients and patients with acute renal failure or known renal disease.Note:Creatinine clearance (not GFR) should be used for drug dosing. Osmolality 276 mOsm/kg Normal 275-295 [facility] Comment on above: Performed By: #### 1 65638, [id number], [id number] ####[facility] [id number] [place] [address] Medical Director: Devan Holguin MD Calcium 9.0 mg/dL Normal 8.5-10.5 [facility] Comment on above: Performed By: #### 1 24838, 354334, [id number] ####[facility] [id number] [place] [address] Medical Director: Devan Holguin MD Chloride 103 mmol/L Normal 100-109 [facility] Comment on above: Performed By: #### 1 32854, [id number], [id number] ####[facility] [id number] [place] [address] Medical Director: Devan Holguin MD CO2 30.1 mmol/L Normal 21.0-32.0 [facility] Comment on above: Performed By: #### 1 76733, 945886, [id number] ####[facility] [id number] [place] [address] Medical Director: Devan Holguin MD Creatinine 0.8 mg/dL Normal 0.6-1.0 [facility] Comment on above: Performed By: #### 1 17318, [id number], [id number] ####[facility] [id number] [place] [address] Medical Director: Devan Holguin MD Glucose mass conc 81 mg/dL Normal 72-100 [facility] Comment on above: Result Comment: Luna puncture should occur prior to sulfasalazine administration due to the potential for falsely depressed results. Venipuncture should occur prior to sulfapyridine administration due to the potential falsely elevated results.Baseline assay values before administration of sulfasalazine and sulfapyridine therapy would not be affected. Performed By: #### 1 32403, [id number], [id number] ####[facility] [id number] [place] [address] Medical Director: Devan Holguin MD Potassium molar conc 4.5 mmol/L Normal 3.5-5.1 [facility] Comment on above: Performed By: #### 1 58959, 517176, [id number] ####[facility] [id number] [place] [id number] Medical Director: Devan Holguin MD Sodium 139 mmol/L Normal 135-145 [facility] Comment on above: Performed By: #### 1 32711, 512063, [id number] ####[facility] [id number] [place] [address] Medical Director: Devan Holguin MD Urea nitrogen 10 mg/dL Normal 10-20 [facility] Comment on above: Performed By: #### 1 51771, 392039, [id number] ####[facility] [id number] [place] [address] Medical Director: Devan Holguin MD CBCNDon 09-27-2017 Erythrocyte distribution width Auto Ratio (RBC) 12.5 % Normal 11.5-14.5 [facility] Comment on above: Performed By: #### 1 39476, [id number], [id number] ####[facility] [address] [place] [address] Medical Director: Devan Holguin MD Erythrocytes (RBC) 4.60 x10 Normal 4.20-5.40 [facility] Comment on above: Result Comment: Note : RBC morphology is normal unless otherwise stated. Evaluation performed only if differential is requested. Performed By: #### 1 40976, 085695, [id number] ####[facility] [id number] [place], [place] [id number]) [phone] Director: Devan Holguin MD Hematocrit (HCT) 41.9 % Normal 36.0-46.0 [facility] Comment on above: Performed By: #### 1 22696, [id number], [id number] ####[facility] [address] [place] [address] Medical Director: Devan Holguin MD Hemoglobin mass conc (Bld) 14.0 g/dL Normal 12.0-16.0 [facility] Comment on above: Performed By: #### 1 13027, 213619, [id number] ####[facility] [id number] [place] [address] Medical Director: Devan Holguin MD MCH 30.4 pg Normal 27.0-34.0 [facility] Comment on above: Performed By: #### 1 34744, 497915, [id number] ####[facility] [id number] [place] [id number]) [phone] Director: Devan Holguin MD MCHC mass conc (RBC) 33.4 g/dL Normal 32.0-37.0 [facility] Comment on above: Performed By: #### 1 11171, 716791, [id number] ####[facility] [id number] [place] [address] Medical Director: Devan Holguin MD MCV 91.0 fL Normal 80.0-100.0 [facility] Comment on above: Performed By: #### 1 50394, 938622, [id number] ####[facility] [id number] [place] [address] Medical Director: Devan Holguin MD Platelet mean volume (PMV) 7.3 fL Low 7.4-10.4 [facility] Comment on above: Performed By: #### 1 87922, 031315, [id number] ####[facility] [id number] [place] [address] Medical Director: Devan Holguin MD Platelets 302 x1000 Normal 150-450 [facility] Comment on above: Performed By: #### 1 21014, 259024, [id number] ####[facility] [id number] [place] [address] Medical Director: Devan Holguin MD WBC (Leukocytes) 10.3 x10 Normal 4.5-11.0 [facility] Comment on above: Performed By: #### 1 04509, 736421, [id number] ####[facility] [address] [place] [address] Medical Director: Devan Holguin MD WBC (Leukocytes) 10.3 10*3/uL Normal [facility] Comment on above: Performed By: #### 1 26302, 259778, [id number] ####[facility] [id number] [place] [address] Medical Director: Devan Holguin MD LIPID PNLon 09-27-2017 Calculated LDL Cholesterol 118 mg/dL Normal 60-130 [facility] Comment on above: Result Comment: <100 mg/dl Alrqncs969-169 mg/dl Near Qjpfkvb770-818 mg/dl Borderline Rwry308-627 mg/dl High>=190 mg/dl Very High Performed By: #### 1 44433, 247287, [id number] ####[facility] [id number] [place] [address] Medical Director: Devan Holguin MD Cholesterol to HDL Ratio 4.4 {ratio} Normal [facility] Comment on above: Performed By: #### 1 27406, 060766, [id number] ####[facility] [address] [place] [address] Medical Director: Devan Holguin MD Cholesterol 185 mg/dL Normal 100-200 [facility] Comment on above: Result Comment: <200 mg/dl Clqbveohu539-176 mg/dl Borderline High>= 240 mg/dl High Performed By: #### 1 44147, 372750, [id number] ####[facility] [address] [place] [address] Medical Director: Devan Holgiun MD HDL Cholesterol 42 mg/dL Normal 40-60 [facility] Comment on above: Performed By: #### 1 26037, 050504, [id number] ####[facility] [address] [place] [address] Medical Director: Devan Holguin MD Triglyceride 123 mg/dL Normal 30-150 [facility] Comment on above: Performed By: #### 1 40405, 770413, [id number] ####[facility] [id number] [place] [address] Medical Director: Devan Holguin MD Vital Signs Date Time Vital Sign Value Performing Clinician Faci lity 12-14-2022 00:11-0400 Diastolic blood pressure 60 mm[Hg] [facility] 12-14-2022 00:11-0400 Heart rate 81 /min [facility] 12-14-2022 00:11-0400 Respiratory rate 18 /min [facility] 12-14-2022 00:11-0400 SaO2% (BldA) [Mass fraction] 94 % [facility] 12-14-2022 00:11-0400 Systolic blood pressure 90 mm[Hg] [facility] 12-13-2022 20:21-0400 Body height 157.48 cm [facility] 12-13-2022 20:21-0400 Body mass index (BMI) [Ratio] 35 kg/m2 [facility] 12-13-2022 20:21-0400 Body temperature 98.6 [degF] [facility] 12-13-2022 20:21-0400 Body weight 86.9 kg [facility] Encounters Encounter Date Encounter Type Care Provider Facility Start: 07-15-2025 ambulatory Marli Rupesh Facility :[facility] Start: 06-27-2025 Encounter for gyneco logical examination (general) (routine) without abnormal findings Marli Rupesh [facility] Start: 06-27-2025 End: 06-27-2025 ambulatory Marli Goddard Facility:[facility] Start: 11-03-2023 End: 11-03-2023 ambulatory [facility] Work Phone: Start: 11-03-2023 End: 11-03-2023 Discharged Recurring [facility] Work Phone: Start: 06-20-2023 End: 06-20-2023 ambulatory [facility] Work Phone: Start: 06-20-2023 End: 06-20-2023 Patient encounter procedure [facility] Start: 12-13-2022 End: 12-14-2022 [facility] [facility] Start: 04-29-2022 End: 04-29-2022 [facility] Work Phone: Start: 04-29-2022 End: 04-29-2022 Patient encounter procedure [facility] Start: 09-27-2017 End: 09-28-2017 Ambulatory APRIL SCHILLINGI Facility:[id number] Procedures Date Procedure Procedure Detail Performing Clinician Start: 12-13-2022 Plain chest X-ray Plan of Treatment Date Care Activity Detail Author Start: 06-20-2023 Measurement of Borre gregg burgdorferi antibody [facility] Estrogen [Mass/volum e] in Serum or Plasma [facility] Patient Education ED Weakness (U ncertain Cause) ED Dizziness or Syncope ... [facility] Work Phone: Patient referral [facility] Work Phone: [facility] Payers Date Payer Category Payer Self-pay [id number] Unknown [id number] Unknown [id number] Unknown [id number] Unknown [id number] Social History Date Type Detail Facility Tobacco smoking status NHIS Unknown if ever smoked [facility] Work Phone: Start: 1985 Sex Assigned At Female [facility] Start: 12-13-2022 End: 12-13-2022 Tobacco smoking status NHIS Unknown if ever smoked [facility] NEGATED: Highlighted row [facility] Mental Status Date Assessment Result Facility 12-13-2022 Cognitive function Voice/Name [facility] Work Phone: Discharge summary 11-03-2023 Note Date & Type Note Facility 11-03-2023 Discharge summary Note Date/Time November 03, 2023 8:32am [facility] Physical Therapy [facility] [address] [place] [address] [address] [place] [address] / REHABILITATION SERVICES DISCHARGE SUMMARY MR#: [id number] Acct: [id number] Name: JESSE BUTLER Rep #: [id number] : 1985 38 From: Coco Rosales Referring DrKendall: SRIKANTH Molina Status: REG R Insurance: [facility] [id number] SELF PAY INSURANCE Discharge Summary D/C summary: It has been my pleasure to treat JESSE Lupe BUTLER referred by Dr. Steve Molina DPM, with the diagnosis of Lateral Ankle Instability for a total of 5 visit(s). Discharge Date: Please see the following information for a summary of their discharge status. Subjective Subjective: She does have discomfort when she moves it to the outside but not constantly- she sees the MD at 9:00 today. She feels that the exercises feel easy- she has challenges with the single leg squatting- can tell the difference between her legs. The exercises don't hurt- she has not noticed a huge difference in the amount of loss of balance. The TM is going okay- she has not continued to add incline. She feels that she is 70% improvement. She wants to continue HEP independently and see how she does. Pain Bilateral Ankle: Pain Intensity (Out of 10): 3 Overall Improvement % Improvement: 70 Objective Objective/Function: Objective: Posture: forward head, rounded shoulders, can correct but does not maintain Gait: no deviation noted- does have mild valgus at the knees and pes planus without shoes inserts Sit to Stand: mild valgus HR/TR: able without pain SLS: 15 sec increased muscle activation and sway ROM: WFL in all planes of the LE Palpation: tender along lateral aspect of the malleolus ATFL Strength: Core: fair, Hip: 4/5 throughout, Knee: 5/5, Ankle: 4+/5 pain with eversion Flex: HS: moderate, Gastroc: moderate, Soleus: moderate Goals Goal 1:: Patient will report participation in home exercise program activities aminimum of 5 days per week, as adjunct to skilled physical therapy intervention in preparation for independent home management upon discharge. Goal Progress: Goal Met Goal 2:: Patient will SLS without loss of balance for 30 sec Goal Progress: Progressing Goal 3:: Patient will report no rolling of her ankles for 1 week Goal Progress: Progressing Goal 4:: Patient will report 80% improvement Goal Progress: Progressing Plan Plan: 11/03/23: Discharge to [facility]- encouraged to call if questions Initial POC: 1x a week- Focus on HEP-Focus on LE and core strength/stabilization(Ankle Stabilization Ex, Planks, Swazi Ball Exercises, Hamstring Ex)- Posterior Chain D/C Information d/c sentence: If there are questions or concerns regarding this patient's physical therapy, please feel free to call me at [phone]. Thank you for the referral of thispatient. Sincerely, Coco Ramirez, JUWAN Balance/Gait/Functional tests Balance/Special Test Scores Lower Extremity Functional Score: 59 Improvement % Improvement: 70 <Electronically signed by Coco Ramirez DPT> 11/03/23 [id number] CC: SRIKANTH Molina; Dr. Seferino Agrawal MD ~ ELR Signed [facility] Work Phone: Discharge summary 12-13-2022 Note Date & Type Note Facility 12-13-2022 Discharge summary Note Date/Time December 13, 2022 8:44pm [facility] Medical Records Department [address] [place] [address] Emergency Department Summary 12/13/22 MR#: [id number] Acct: [id number] Name: JESSE BUTLER Rep #:[id number] : 1985 37 From: Salvatore Johnson DO PCP: Dr. Seferino Agrawal MD Status:REG E R Location: ED HPI History of Present Illness Chief Complaint: Alt LOC Narrative Narrative: 37-year-old female presenting with fatigue, weakness. She was out to dinner with her . She states that she took a 10 mg marijuana gummy which she normally takes. She had a couple sips of her gin mixed drink. She states it was too strong so she did not drink it. states there was three quartersof a glass left. On the patient's states that she started to get passedout in the seat. He states he was able to wake her up. No loss of bladder or bowel. She did not have any chest pain or shortness of breath. She denies any other drug or alcohol use. She states he has a history of syncope in the past. She also has history of hypokalemia. Patient also reports that she found a tickon the vertex of her head yesterday. She does not know how long its been there. She states it was engorged. Patient also complaining of abdominal pain in her lower abdomen which is mild. It is fairly diffuse. No urinary or vaginal complaints. [facility] Medical History (Updated 12/13/22 @ 20:25 by Melonie Turner) PTSD (post-traumatic stress disorder) Allergy/AdvReac Type Severity Reaction Status Date / Time No Known Allergies Allergy Verified 12/13/22 20:25 Social History Smoking Status: Former smoker EXAM Physical Exam Const Vital Signs: 12/13/22 20:21 12/13/22 20:41 12/13/22 21:20 Temperature 98.6 F Temperature Source Temporal Pulse Rate 85 78 Pulse Rate [Lying] 56 L Pulse Rate [Sitting (for 1 minute prior to obtaining)] 55 L Pulse Rate [Standing (for 1 minute prior to obtaining)] 73 Respiratory Rate 19 H 22 H Blood Pressure 99/64 92/69 Blood Pressure [Lying] 90/63 Blood Pressure [Sitting (for 1 minute prior to obtaining)] 95/68 Blood Pressure [Standing (for 1 minute prior to obtaining)] 89/58 L Blood Pressure Mean 75 76 Blood Pressure Mean [Lying] 72 Blood Pressure Mean [Sitting (for 1 minute prior to obtaining)] 77 Blood Pressure Mean [Standing (for 1 minute prior to obtaining)] 68 Pulse Ox 100 99 Oxygen Delivery Method Room Air Room Air 12/13/22 22:52 Temperature Temperature Source Pulse Rate 73 Pulse Rate [Lying] Pulse Rate [Sitting (for 1 minute prior to obtaining)] Pulse Rate [Standing (for 1 minute prior to obtaining)] Respiratory Rate 19 H Blood Pressure 89/58 L Blood Pressure [Lying] Blood Pressure [Sitting (for 1 minute prior to obtaining)] Blood Pressure [Standing (for 1 minute prior to obtaining)] Blood Pressure Mean 68 Blood Pressure Mean [Lying] Blood Pressure Mean [Sitting (for 1 minute prior to obtaining)] Blood Pressure Mean [Standing (for 1 minute prior to obtaining)] Pulse Ox 95 Oxygen Delivery Method Room Air MDM MDM MDM Narrative Medical decision making narrative: Patient presenting with weakness, her states she passed out on this front seat on the way home. Unclear if this was a syncopal event. Patient states she is very tired. She is alert and awake in no distress. No focal neurologic deficits or lateralizing signs or symptoms. Vital signs are stable and she is afebrile. EKG was obtained which shows a junctional rhythm at a rateof 58 bpm without sign of ischemic change on my interpretation. She states thatthis is her usual heart rate. As I went into the room to the heart monitor appears to be clearly a normal sinus rhythm at a rate of 85 bpm. Orthostatic vital signs were obtained and her blood pressures are normal. Her heart rate goes up about 17. She was given a liter of normal saline. Chest x-ray my interpretation shows no acute cardiopulmonary process. Radiologist services andagrees the shows a leukocytosis 11.2 without a left shift. Hemoglobin hematocrit are stable. Creatinine slightly elevated today at 1.15. Electrolytes unremarkable. Glucose 128 without anion gap. High-sensitivity troponin less than 3. hCG is negative. Urinalysis negative for infection. Urine drug screen positive for cannabinoids which the patient admits to. EtOH is 11. Patient is feeling improved but she does states he is sleepy. I feel she stable for discharge after she gets a liter of saline. Return precautions were discussed. Impression: 1. Generalized weakness 2. Dehydration 3. Altered mental status Lab Data Labs: Laboratory Results - last 24 hr 12/13/22 12/13/22 12/13/22 20:27 20:30 20:30 WBC 11.2 H RBC 4.65 Hgb 13.6 Hct 42.0 MCV 90.3 MCH 29.2 MCHC 32.4 RDW Std Deviation 39.1 RDW Coeff of Sanjay 12.0 Plt Count 319 MPV 9.4 Immature Gran % (Auto) 0.600 Neut % (Auto) 45.4 L Lymph % (Auto) 42.3 H Coffee % (Auto) 7.8 Eos % (Auto) 3.2 Baso % (Auto) 0.7 Absolute Neuts (auto) 5.1 Absolute Lymphs (auto) 4.75 H Nucleated RBC % 0 Sodium 134 L Potassium 3.7 Chloride 104 Carbon Dioxide 22.0 Anion Gap 8 BUN 12 Creatinine 1.15 H Estim Creat Clear Calc 51.95 Est GFR (MDRD) Af Amer 67 Est GFR (MDRD) Non-Af 56 L BUN/Creatinine Ratio 10.4 Glucose 128 H Calcium 9.1 Total Bilirubin 0.50 AST 19 ALT 25 Alkaline Phosphatase 59 Troponin I High Sens < 3 L Total Protein 8.3 H Albumin 4.0 Globulin 4.3 H Albumin/Globulin Ratio 0.9 Serum , Qual Urine Color Urine Clarity Urine pH Ur Specific Holland Urine Protein Urine Glucose (UA) Urine Ketones Urine Occult Blood Urine Nitrite Urine Bilirubin Urine Urobilinogen Ur Leukocyte Esterase Urine RBC Urine WBC Ur Squamous Epith Cells Urine Bacteria Urine Mucus Urine Opiates Screen Urine Methadone Screen Ur Barbiturates Screen Ur Phencyclidine Scrn Ur Amphetamines Screen MDMA (Ecstasy) Screen U Benzodiazepines Scrn Urine Cocaine Screen U Cannabinoids Screen Ur Drug Screen Comment Ethyl Alcohol POC Glucose 122 H 12/13/22 12/13/22 12/13/22 20:30 20:30 21:51 WBC RBC Hgb Hct MCV MCH MCHC RDW Std Deviation RDW Coeff of Sanjay Plt Count MPV Immature Gran % (Auto) Neut % (Auto) Lymph % (Auto) Coffee % (Auto) Eos % (Auto) Baso % (Auto) Absolute Neuts (auto) Absolute Lymphs (auto) Nucleated RBC % Sodium Potassium Chloride Carbon Dioxide Anion Gap BUN Creatinine Estim Creat Clear Calc Est GFR (MDRD) Af Amer Est GFR (MDRD) Non-Af BUN/Creatinine Ratio Glucose Calcium Total Bilirubin AST ALT Alkaline Phosphatase Troponin I High Sens Total Protein Albumin Globulin Albumin/Globulin Ratio Serum , Qual NEGATIVE Urine Color Urine Clarity Urine pH Ur Specific [place] Urine Protein Urine Glucose (UA) Urine Ketones Urine Occult Blood Urine Nitrite Urine Bilirubin Urine Urobilinogen Ur Leukocyte Esterase Urine RBC Urine WBC Ur Squamous Epith Cells Urine Bacteria Urine Mucus Urine Opiates Screen NEGATIVE Urine Methadone Screen NEGATIVE Ur Barbiturates Screen NEGATIVE Ur Phencyclidine Scrn NEGATIVE Ur Amphetamines Screen NEGATIVE MDMA (Ecstasy) Screen NEGATIVE U Benzodiazepines Scrn NEGATIVE Urine Cocaine Screen NEGATIVE U Cannabinoids Screen POSITIVE H Ur Drug Screen Comment Ethyl Alcohol 11.0 POC Glucose 12/13/22 21:51 WBC RBC Hgb Hct MCV MCH MCHC RDW Std Deviation RDW Coeff of Sanjay Plt Count MPV Immature Gran % (Auto) Neut % (Auto) Lymph % (Auto) Coffee % (Auto) Eos % (Auto) Baso % (Auto) Absolute Neuts (auto) Absolute Lymphs (auto) Nucleated RBC % Sodium Potassium Chloride Carbon Dioxide Anion Gap BUN Creatinine Estim Creat Clear Calc Est GFR (MDRD) Af Amer Est GFR (MDRD) Non-Af BUN/Creatinine Ratio Glucose Calcium Total Bilirubin AST ALT Alkaline Phosphatase Troponin I High Sens Total Protein Albumin Globulin Albumin/Globulin Ratio Serum , Qual Urine Color Yellow Urine Clarity Clear Urine pH 6.0 Ur Specific Holland 1.015 Urine Protein 30 H Urine Glucose (UA) Normal Urine Ketones Negative Urine Occult Blood 150 H Urine Nitrite Negative Urine Bilirubin Negative Urine Urobilinogen Normal Ur Leukocyte Esterase 25 H Urine RBC 0-5 SEEN Urine WBC 0-5 SEEN Ur Squamous Epith Cells 0-5 SEEN Urine Bacteria RARE Urine Mucus 0 SEEN Urine Opiates Screen Urine Methadone Screen Ur Barbiturates Screen Ur Phencyclidine Scrn Ur Amphetamines Screen MDMA (Ecstasy) Screen U Benzodiazepines Scrn Urine Cocaine Screen U Cannabinoids Screen Ur Drug Screen Comment Ethyl Alcohol POC Glucose Radiography Diagnostic Testing: Clinical Impression(s) from Imaging Studies Chest X-Ray 12/13/22 20:55 IMPRESSION: Normal x-ray examination of the chest. Electronically Signed: Tyrell Akbar MD at 21:14 EDT , Discharge Plan Triage Chief Complaint: Alt LOC ED Provider: Salvatore Johnson Dx/Rx/DC Orders Primary Care Provider: Seferino Agrawal Referrals: Seferino Agrawal MD [Primary Care Provider] - What to do if you have Problems For any increased pain, shortness of breath, bleeding, nausea or vomiting, chestpain, or any unexpected problems, contact your Primary Care Provider. Call [facility] ([phone]) or report to the closest Emergency Room. Call 911 if necessary. 12/13/[id number] <Electronically signed by Salvatore Johnson DO> Cosigner Signature (if applicable): CC: Dr. Seferino Agrawal MD ~ Signed [facility] Work Phone: Evaluation note Note Date & Type Note Facility Evaluation note No assessment information availa ble [facility] Work Phone: Summary Purpose Family History No Family History Records FoundNo Family History Records Found Advance Directives No Advanced Directives Records Found Advance Directive Response Recorded Date/ Time Living Will No December 13, 2022 8:26pm Power of Community Resource Officer No December 13 8:26pm Advance Directive Response Recorded Date/ Time Living Will No December 13, 2022 7:26pm Power of Community Resource Officer No December 13 7:26pm Chief Complaint and Reason for Visit Chief Complaint altered loc Chief Complaint BILATERAL ANKLE INST ABILITY Additional Source Comments INFORMATION SOURCE (unrecogn ized section and content) DATE CREATED AUTHOR 02/09/2018 [facility] DATE CREATED AUTHOR AUTHOR'S ORGANIZ ATION 07/01/2025 [facility] Goals (unrecognized section and content) Goals may be documented in a n alternate sectionGoals may be documented in an alternate sectionGoals may be documented in an alternate sectionGoals may be documented in an alternate section Care Teams (unrecognized sec tion and content) Team Status: Active Member Role Status Dates Dr. Seferino Agrawal MD Primary Care Provider Active Team Status: Inactive Member Role Status Dates Dr. Seferino Agrawal MD Primary Care Provider Active Dr. Salvatore Johnson DO Emergency Provider Active Team Status: Inactive Member Role Status Dates Dr. Seferino Agrawal MD Primary Care Provider, Attending Provider Active Team Status: Inactive Member Role Status Dates Dr. Seferino Agrawal MD Primary Care Provider Active Dr. Steve Molina DPM Attending Provider, Referring Provider Active FOR RECORDS PERTAINING TO PATIENTS WHO ARE OR HAVE BEEN ENROLLED IN A CHEMICAL DEPENDENCY/SUBSTANCEABUSE PROGRAM, SOME INFORMATION MAY BE OMITTED. This clinical summary was aggregated from multiple sources. Caution should be exercised in using it in the provision of clinical care. This summary normalizes information from multiple sources, and as a consequence, information in this document may materially change the coding, format and clinical context of patient data. In addition, data may be omitted in some cases. CLINICAL DECISIONS SHOULD BE BASED ON THE PRIMARY CLINICAL RECORDS. [facility] [employer] provides no warranty or guarantee of the accuracy or completeness of information in this document.
== END | disposition home or self-care (01) ==
PROVIDERS: PCP Family Medicine; Referring Provider Advanced Practice Midwife; Visit Provider Advanced Practice Midwife
DX: Z12.31 Encounter for screening mammogram for malignant neoplasm of breast (principal)
CPT/HCPCS: 77063; 77067

== ENCOUNTER → 2025-07-26 | Outpatient (CLI) | payer OTHER, SELFPAY ==
--- NOTE | 2025-07-26 08:58 | US_ITS ---
PROCEDURE: BREAST LIMITED UNILATERAL 07/26/2025 REASON FOR EXAM: F, Age 40 y/o , BILAT MASS COMPARISON: Prior mammogram done earlier in the day as well as prior mammogram dated July 15, 2025.. TECHNIQUE: Procedure Code: USBRSTLIMIT Modality: US Procedure: BREAST LIMITED UNILATERAL FINDINGS: There is an irregular mass lesion with posterior acoustical shadowing at the 12 to 1 o'clock position of the breast at 2 cm from the nipple. This measures 5 mm x 6 mm x 6 mm. Dilated ducts are seen at the 1 o'clock position of the breast at 5 cm from the nipple. Imaging of the right axilla demonstrates small benign-appearing lymph nodes. US/Breast Limited Unilateral IMPRESSION: The mammographic abnormality corresponds to a 5 mm x 6 mm x 6 mm irregular hypo echoic mass with posterior acoustical shadowing at 12 o'clock to 1 o'clock position of the breast at 2 cm from the nipple. Biopsy recommended. BI-RADS 4: SUSPICIOUS RECOMMENDATION: Biopsy Recommended Reading Location: [place] [address]
--- NOTE | 2025-07-26 08:58 | BI_ITS ---
EXAM: DIAG MAMM W/CAD, BILAT N/A CLINICAL HISTORY: F, Age 40 y/o , BILAT MASS. Abnormal screening mammogram. TECHNIQUE: Procedure Code: [id number] Modality: MG Procedure: DIAG MAMM W/CAD, BILAT. Compression spot views were obtained. COMPARISON: Prior exam(s) dated July 15, 2025.. FINDINGS: TISSUE DENSITY: The breasts are heterogeneously dense, which may obscure small masses. Bilateral Breast Mammographic Findings: Persistent spiculated nodular mass in the deep upper central aspect of the right breast. Sonographic correlation recommended. Residual architectural distortion is seen in the deep lateral aspect of the left breast. Sonographic correlation recommended. Prominence of the right axilla. Sonographic correlation recommended. BI/DIAG MAMM W/CAD, BILAT IMPRESSION: Dominant spiculated nodular density in the right breast as described. Sonograp hic correlation recommended. Sonography of the right axillary recommended as well. Architectural distortion in the deep lateral aspect of the left breast. This i s not well seen in the MLO view. Sonographic correlation recommended. OVERALL FINAL ASSESSMENT BI-RADS 0: INCOMPLETE - NEED ADDITIONAL IMAGING EVALUATION. RECOMMENDATION: Ultrasound Recommended Additional Recommendation none A letter with findings and recommendations will be mailed to the patient. Reading Location: [place] [address]
--- NOTE | 2025-07-26 08:58 | US_ITS ---
PROCEDURE: BREAST LIMITED UNILATERAL 07/26/2025 REASON FOR EXAM: F, Age 40 y/o , BILAT MASS COMPARISON: Prior mammogram dated July 07, 2025 and July 26, 2025.. TECHNIQUE: Procedure Code: USBRSTLIMIT Modality: US Procedure: BREAST LIMITED UNILATERAL. Targeted ultrasound of the 3 o'clock position of the left breast was performed. FINDINGS: There is a 4 mm x 3 mm x 4 mm cyst at the 2 o'clock position of the breast at 9 cm from the nipple. US/Breast Limited Unilateral IMPRESSION: 4 mm x 3 mm x 4 mm cyst at the 2 o'clock position of the breast at 9 cm from th e nipple. BI-RADS 2: BENIGN RECOMMENDATION: Routine annual follow-up in 1 Year Reading Location: [place] [address]
--- OUTSIDE RECORDS SUMMARY | 2025-07-26 10:08 | XMS RPT_ITS | CCD ---
Author Organization [facility] Care Team Providers Care Security Systems Installer Name Role Phone APRIL GUTIÉRREZ Unavailable Unavailable [...] APTIMA 16/18,45on 06-29-2025 ADEQ Comment Normal . [facility] Comment on above: Order Comment: Speci men Comment: [id number] Specimen Comment: No. of containers..01 ThinPrep Vial Result Comment: Sati sfactory for evaluation. Endocervical and/or squamous metaplastic cells (endocervical component) are present. Performed By: #### L 7400.0280 #### [facility] [address] [place], [place], [id number] COMM . Normal . [facility] Comment on above: Order Comment: Speci men Comment: [id number] Specimen Comment: No. of containers..01 ThinPrep Vial Performed By: #### L 7400.0280 #### [facility] [address] [place], [place], [id number] COMMENT Comment Normal . [facility] Comment on above: Order Comment: Speci men Comment: [id number] Specimen Comment: No. of containers..01 ThinPrep Vial Result Comment: This liquid based ThinPrep(R) pap test was interpreted using the SANDOW(R) Genius(TM) Cervical Algorithm whole slide imaging system. Performed By: #### L 7400.0280 #### [facility] [address] [place], [place], [id number] DIAG Comment Normal . [facility] Comment on above: Order Comment: Speci men Comment: [id number] Specimen Comment: No. of containers..01 ThinPrep Vial Result Comment: NEGA TIVE FOR INTRAEPITHELIAL LESION OR MALIGNANCY. Performed By: #### L 7400.0280 #### [facility] [address] [place], [place], [id number] HPV APTIMA, HR Negative Normal Negative [facility] Comment on above: Order Comment: Speci men Comment: [id number] Specimen Comment: No. of containers..01 ThinPrep Vial Result Comment: This nucleic acid amplification test detects fourteen high- risk HPV types (16,18,31,33,35,39,45,51,52,56,58,59,66,68) without differentiation. Performed By: #### L 7400.0280 #### [facility] [address] [place], [place], [id number] HPV Jill Rfx Comment Normal . [facility] Comment on above: Order Comment: Speci men Comment: [id number] Specimen Comment: No. of containers..01 ThinPrep Vial Result Comment: Crit eria not met, HPV Genotype not performed. Performed at: - [address] [id number] Automotive Design Drafter: Radha Park MD, Phone: [phone] Performed at: =[address] [id number] Automotive Design Drafter: Radha Park MD, Phone: [phone] Performed By: #### L 7400.0280 #### [facility] [address] [place], [place], [id number] PAPSMR Comment Normal . [facility] Comment on above: Order Comment: Speci men Comment: [id number] Specimen Comment: No. of containers..01 ThinPrep Vial Result Comment: The Pap smear is a screening test designed to aid in the detection of premalignant and malignant conditions of the uterine cervix. It is not a diagnostic procedure and should not be used as the sole means of detecting cervical cancer. Both false-positive and false-negative reports do occur. Performed By: #### L 7400.0280 #### [facility] [address] [place], [place], [phone] PERFORM Comment Normal . [facility] Comment on above: Order Comment: Speci men Comment: [id number] Specimen Comment: No. of containers..01 ThinPrep Vial Result Comment: Hernando Cunningham, Budget Clerk (ASCP) Performed By: #### L 7400.0280 #### [facility] [address] [place], [place], [phone] CBC W/Diff, Automatedon 11-1 0-5 Absolute Lymph 2.39 X10 3/uL Normal 0.83-4.51 [facility] Comment on above: Performed By: #### L 500.4050, L501.9520, L100.0100, L500.4100, L506.0400 #### [facility] [address] [place], [address] Absolute Neut 4.9 X10 3/uL Normal 2.0-7.7 [facility] Comment on above: Performed By: #### L 500.4050, L501.9520, L100.0100, L500.4100, L506.0400 #### [facility] [address] [place], [address] Basophils/100 WBC (Bld) 0.6 % Normal 0-1 [facility] Comment on above: Performed By: #### L 500.4050, L501.9520, L100.0100, L500.4100, L506.0400 #### [facility] [address] [place], [address] Eosinophils/100 WBC (Bld) 4.2 % Normal 0-5 [facility] Comment on above: Performed By: #### L 500.4050, L501.9520, L100.0100, L500.4100, L506.0400 #### [facility] [address] [place], [address] Erythrocyte distribution width (RBC) [Ratio] 11.9 % Normal 11.6-14.6 [facility] Comment on above: Performed By: #### L 500.4050, L501.9520, L100.0100, L500.4100, L506.0400 #### [facility] [address] [place], [address] Hematocrit (Bld) [Volume fraction] 42.9 % Normal 37-47 [facility] Comment on above: Performed By: #### L 500.4050, L501.9520, L100.0100, L500.4100, L506.0400 #### [facility] [address] [place], [address] Hemoglobin (Bld) [Mass/Vol] 14.1 g/dL Normal 12.0-15.0 [facility] Comment on above: Performed By: #### L 500.4050, L501.9520, L100.0100, L500.4100, L506.0400 #### [facility] [address] [place], [address] IG% 0.500 Normal 0.0-0.9 [facility] Comment on above: Result Comment: IG% - Immature Granulocytes (promyelocytes, myelocytes and metamyelocytes) > 1% indicates that a LEFT SHIFT is Present. Performed By: #### L 500.4050, L501.9520, L100.0100, L500.4100, L506.0400 #### [facility] [address] [place], [address] Lymphocytes/100 WBC (Bld) 28.7 % Normal 19-41 [facility] Comment on above: Performed By: #### L 500.4050, L501.9520, L100.0100, L500.4100, L506.0400 #### [facility] [address] [place], [address] MCH (RBC) [Entitic mass] 29.6 pg Normal 27.0-32.0 [facility] Comment on above: Performed By: #### L 500.4050, L501.9520, L100.0100, L500.4100, L506.0400 #### [facility] [address] [place], [address] MCHC (RBC) [Mass/Vol] 32.9 g/dL Normal 32-36 [facility] Comment on above: Performed By: #### L 500.4050, L501.9520, L100.0100, L500.4100, L506.0400 #### [facility] [address] [place], [address] MCV (RBC) [Entitic vol] 89.9 fL Normal 81-99 [facility] Comment on above: Performed By: #### L 500.4050, L501.9520, L100.0100, L500.4100, L506.0400 #### [facility] [address] [place], [address] Monocytes/100 WBC (Bld) 6.8 % Normal 0-10 [facility] Comment on above: Performed By: #### L 500.4050, L501.9520, L100.0100, L500.4100, L506.0400 #### [facility] [address] [place], [address] Neutrophils/100 WBC (Bld) 59.2 % Normal 47-70 [facility] Comment on above: Performed By: #### L 500.4050, L501.9520, L100.0100, L500.4100, L506.0400 #### [facility] [address] [place], [address] Nucleated RBC (Bld) [#/Vol] 0 10*3/uL Normal 0-5 [facility] Comment on above: Performed By: #### L 500.4050, L501.9520, L100.0100, L500.4100, L506.0400 #### [facility] [address] [place], [address] Platelet mean volume (Bld) [Entitic vol] 9.3 fL Normal 6.2-12.0 [facility] Comment on above: Performed By: #### L 500.4050, L501.9520, L100.0100, L500.4100, L506.0400 #### [facility] [address] [place], [address] Platelets (Bld) [#/Vol] 288 10*3/uL Normal 150-450 [facility] Comment on above: Performed By: #### L 500.4050, L501.9520, L100.0100, L500.4100, L506.0400 #### [facility] [address] [place], [address] RBC (Bld) [#/Vol] 4.77 10*6/uL Normal 4.2-5.4 [facility] Comment on above: Performed By: #### L 500.4050, L501.9520, L100.0100, L500.4100, L506.0400 #### [facility] [address] [place], [address] RDW SD 38.8 fl Normal 35.1-43.9 [facility] Comment on above: Performed By: #### L 500.4050, L501.9520, L100.0100, L500.4100, L506.0400 #### [facility] [address] [place], [address] WBC (Bld) [#/Vol] 8.3 10*3/uL Normal 4.4-11.0 [facility] Comment on above: Performed By: #### L 500.4050, L501.9520, L100.0100, L500.4100, L506.0400 #### [facility] [address] [place], [address] Comprehensive Metabolic Prof [facility] 06-27-2025 Albumin [Mass/Vol] 4.7 g/dL Normal 3.5-5.0 [facility] Comment on above: Performed By: #### L 500.4050, L501.9520, L100.0100, L500.4100, L506.0400 #### [facility] [address] [place], [address] Albumin/Globulin [Mass ratio] 1.4 {ratio} Normal 0.9-2.4 [facility] Comment on above: Performed By: #### L 500.4050, L501.9520, L100.0100, L500.4100, L506.0400 #### [facility] [address] [place], [address] ALK PHOS 58 U/L Normal 35-104 [facility] Comment on above: Performed By: #### L 500.4050, L501.9520, L100.0100, L500.4100, L506.0400 #### [facility] [address] [place], [address] ALT [Catalytic activity/Vol] 18 U/L Normal <=34 [facility] Comment on above: Performed By: #### L 500.4050, L501.9520, L100.0100, L500.4100, L506.0400 #### [facility] [address] [place], [address] AST [Catalytic activity/Vol] 24 U/L Normal <=31 [facility] Comment on above: Performed By: #### L 500.4050, L501.9520, L100.0100, L500.4100, L506.0400 #### [facility] [address] [place], [address] Bilirubin [Mass/Vol] 1.21 mg/dL Normal 0.00-1.30 [facility] Comment on above: Performed By: #### L 500.4050, L501.9520, L100.0100, L500.4100, L506.0400 #### [facility] [address] [place], [address] BUN/CRE 13.0 RATIO Normal 10-20 [facility] Comment on above: Performed By: #### L 500.4050, L501.9520, L100.0100, L500.4100, L506.0400 #### [facility] [address] [place], [address] Calcium [Mass/Vol] 9.7 mg/dL Normal 7.6-11.0 [facility] Comment on above: Performed By: #### L 500.4050, L501.9520, L100.0100, L500.4100, L506.0400 #### [facility] [address] [place], [address] Chloride [Moles/Vol] 101 mmol/L Normal 98-108 [facility] Comment on above: Performed By: #### L 500.4050, L501.9520, L100.0100, L500.4100, L506.0400 #### [facility] [address] [place], [address] CO2 [Moles/Vol] 27.5 mmol/L Normal 21.0-32.0 [facility] Comment on above: Performed By: #### L 500.4050, L501.9520, L100.0100, L500.4100, L506.0400 #### [facility] [address] [place], [address] Creatinine [Mass/Vol] 0.88 mg/dL Normal 0.70-1.20 [facility] Comment on above: Performed By: #### L 500.4050, L501.9520, L100.0100, L500.4100, L506.0400 #### [facility] [address] [place], [address] GAP 11 Normal 5-15 [facility] Comment on above: Performed By: #### L 500.4050, L501.9520, L100.0100, L500.4100, L506.0400 #### [facility] [address] [place], [address] GFR/1.73 sq M.predicted among non-blacks MDRD (S/P/Bld) [Vol rate/Area] 84 mL/min/{1.73_m2} Normal >60 [facility] Comment on above: Result Comment: mL/m in/1.73m2 CKD-EPI Creatinine Equation (2020) Performed By: #### L 500.4050, L501.9520, L100.0100, L500.4100, L506.0400 #### [facility] [address] [place], [address] Globulin (S) [Mass/Vol] 3.2 g/dL Normal 2.2-4.2 [facility] Comment on above: Performed By: #### L 500.4050, L501.9520, L100.0100, L500.4100, L506.0400 #### [facility] [address] [place], [address] Glucose [Mass/Vol] 94 mg/dL Normal 70-99 [facility] Comment on above: Performed By: #### L 500.4050, L501.9520, L100.0100, L500.4100, L506.0400 #### [facility] [address] [place], [address] Potassium [Moles/Vol] 3.7 mmol/L Normal 3.3-5.1 [facility] Comment on above: Performed By: #### L 500.4050, L501.9520, L100.0100, L500.4100, L506.0400 #### [facility] [address] [place], [address] Sodium [Moles/Vol] 139 mmol/L Normal 133-145 [facility] Comment on above: Performed By: #### L 500.4050, L501.9520, L100.0100, L500.4100, L506.0400 #### [facility] [address] [place], [address] T PROT 7.9 g/dL Normal 5.9-8.4 [facility] Comment on above: Performed By: #### L 500.4050, L501.9520, L100.0100, L500.4100, L506.0400 #### [facility] [address] [place], [address] Urea nitrogen [Mass/Vol] 12 mg/dL Normal 4-19 [facility] Comment on above: Performed By: #### L 500.4050, L501.9520, L100.0100, L500.4100, L506.0400 #### [facility] [address] [place], [address] Lipid Profileon 06-27-2025 CHOL:HDL 3.15 Normal [facility] Comment on above: Performed By: #### L 500.4050, L501.9520, L100.0100, L500.4100, L506.0400 #### [facility] [address] [place], [address] Cholesterol [Mass/Vol] 179 mg/dL Normal <=200 [facility] Comment on above: Result Comment: Chol esterol level, Desirable <200 mg/dL Borderline high cholesterol 200-239 mg/dL High cholesterol >=240 mg/dL Recommendations of the NCEP Adult Treatment Panel for the following risk-cutoff thresholds for the [place] population. Performed By: #### L 500.4050, L501.9520, L100.0100, L500.4100, L506.0400 #### [facility] [address] [place], [address] Cholesterol in HDL [Mass/Vol] 57 mg/dL Normal [facility] Comment on above: Result Comment: Hetal onal Cholesterol Education Program (NCEP) guidelines: <40 mg/dL: Low HDL-cholesterol (major risk factor for CHD) >= 60 mg/dL: High HDL-cholesterol (negative risk factor for CHD) HDL-cholesterol is affected by a number of factors, e.g. smoking, exercise, hormones, sex and age. Performed By: #### L 500.4050, L501.9520, L100.0100, L500.4100, L506.0400 #### [facility] [address] [place], [address] Cholesterol in LDL [Mass/Vol] 103 mg/dL Normal [facility] Comment on above: Result Comment: Bord kdwubl=703-215 mg/dL Higher Whkr=617 mg/dL or greater Woodard Equation 2020 for LDL-C Performed By: #### L 500.4050, L501.9520, L100.0100, L500.4100, L506.0400 #### [facility] [address] [place], [address] Cholesterol in VLDL [Mass/Vol] 22 mg/dL Normal 5-40 [facility] Comment on above: Performed By: #### L 500.4050, L501.9520, L100.0100, L500.4100, L506.0400 #### [facility] [address] [place], [address] Triglyceride [Mass/Vol] 109 mg/dL Normal [facility] Comment on above: Result Comment: The drugs N-Acetylcysteine and Metamizole may falsely depress this assay. Normal range: <150 mg/dL Borderline High: 150-199 mg/dL High: 200-499 mg/dL Very High: >500 mg/dL Performed By: #### L 500.4050, L501.9520, L100.0100, L500.4100, L506.0400 #### [facility] [address] 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: No Is patient in pain?: No Allergies No Known Allergies Allergy (Verified 06/27/25 08:07) Medications ???Medication ???Instructions ???Recorded ???Confirmed ???Type NK 06/27/25 06/27/25 History Is last menstrual period known: Yes Last Menstrual Period: 06/11/25 Post menopausal: No Patient : No : No Control Method: boyfriend cannot concieve [facility] Medical History (Updated 06/27/25 @ 08:17 by Sujata Beck) Hypokalemia Bradycardia Low blood sugar PTSD (post-traumatic stress disorder) Family History (Updated 06/27/25 @ 08:18 by Sujata Beck) Grandmother Breast cancer Father Thyroid disorder Social History adopted: No household members: spouse number of children: 2 current occupational status: employed 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 Normal [facility] T4 Free Directon 06-27-2025 T4 FREE DIRECT 1.10 ng/dL Normal 0.76-1.46 [facility] Comment on above: Performed By: #### L 500.4050, L501.9520, L100.0100, L500.4100, L506.0400 #### [facility] [address] [place], [place], [id number] Thyroid Stim Hormone (TSH)on 06-27-2025 TSH 2.210 uIU/mL Normal 0.300-4.200 [facility] Comment on above: Performed By: #### L 500.4050, L501.9520, L100.0100, L500.4100, L506.0400 #### [facility] [address] [place], [address] Basophil percentageOrdered B y: Seferino Agrawal on 06-20-2023 Chloride [Moles/Vol] 104 mmol/L 98-107 [facility] Glucose [Mass/Vol] 87 mg/dL 74-106 [facility] Potassium [Moles/Vol] 3.6 mmol/L 3.5-5.1 [facility] Sodium [Moles/Vol] 138 mmol/L 136-145 [facility] - Chemistry and C hemistry - challengeOrdered By: Seferino Agrawal on 06-20-2023 CO2 [Moles/Vol] 29.0 mmol/L 21.0-32.0 [facility] Free T4 [Mass/Vol] 0.92 ng/dL 0.76-1.46 [facility] Urea nitrogen/Creatinine [Mass ratio] 6.7 mg/mg 10-20 [facility] No Panel InformationOrdered By: Seferino Agrawal on 06-20-2023 Estimated GFR (MDRD) Amer 90 mL/min >60 [facility] Comment on above: GFR Calc Estimated GFR (MDRD) Non-Af Amer 75 mL/min >60 [facility] Comment on above: Non- GFR Calc Follicle Stimulating Hormone 6.0 mIU/mL [facility] Comment on above: NORMAL REFERENCE RAN GES FEMALE FOLLICULAR 2.3 - 12.6 mIU/mL MID-CYCLE PEAK 5.2 - 17.5 mIU/mL LUTEAL 1.7 - 12.9 mIU/mL POST-MENOPAUSAL ON MHT 5.9 - 72.8 mIU/mL NOT ON MHT 12.7 - 132.2 mlU/mL MALE 0.7 - 10.8 mIU/mL Free Triiodothyronine (T3) pg/dL 2.3 pg/mL 2.18-3.98 [facility] Luteinizing Hormone 4.2 mIU/mL [facility] Comment on above: NORMAL REFERENCE RAN GES FEMALE FOLLICULAR 1.9 - 26.2 mIU/mL MID-CYCLE PEAK 22.8 - 76.1 mIU/mL LUTEAL 0.6 - 16.6 mIU/mL POST-MENOPAUSAL ON MHT 1.1 - 52.4 mIU/mL NOT ON MHT 8.6 - 61.8 mIU/mL MALE 1.2 - 10.6 mIU/mL Thyroid Stimulating Hormone (TSH) 2.42 uIU/mL 0.358-3.74 [facility] Serum or plasma calcium reed urement (mass/volume)Ordered By: Seferino Agrawal on 06-20-2023 Calcium [Mass/Vol] 8.9 mg/dL 8.5-10.1 [facility] Serum or plasma creatinine m easurement (mass/volume)Ordered By: Seferino Agrawal on 06-20-2023 Creatinine [Mass/Vol] 0.89 mg/dL 0.55-1.02 [facility] Comment on above: The validity of the calculated GFR & GFRAA in patients over 70 years has not been determined. Clinical correlation is essential. Serum or plasma urea nitroge n measurement (mass/volume)Ordered By: Seferino Agrawal on 06-20-2023 Urea nitrogen [Mass/Vol] 6 mg/dL 7-18 [facility] Thin prep Papanicolaou smear with manual screeningOrdered By: Seferino Agrawal on 06-20-2023 Thin prep Papanicolaou smear with manual screening 5 5-15 [facility] Absolute lymphocyte countOrd ered By: Dr. Johsnon on 12-13-2022 Lymphocytes Auto (Unsp spec) [#/Vol] 4.75 10*3/uL 0.83-4.51 [facility] Basophil percentageOrdered B y: Dr. Johnson on 12-13-2022 Basophil percentage 0-5 SEEN /hpf 0-5 [facility] Basophils/100 WBC (Bld) 0.7 % 0-1 [facility] Bilirubin [Mass/Vol] 0.50 mg/dL 0.20-1.00 [facility] Comment on above: For patients on eltr ombopag therapy, use of Dimension [place] TBIL is not recommended. Chloride [Moles/Vol] 104 mmol/L 98-107 [facility] Eosinophils/100 WBC (Bld) 3.2 % 0-5 [facility] Glucose [Mass/Vol] 128 mg/dL 74-106 [facility] Comment on above: Fasting Glucose resu lt greater than or equal to 126 mg/dL suggests DIABETES MELLITUS per A.D.A. criteria. Neutrophils (Bld) [#/Vol] 5.1 10*3/uL 2.0-7.7 [facility] Neutrophils/100 WBC (Bld) 45.4 % 47-70 [facility] Potassium [Moles/Vol] 3.7 mmol/L 3.5-5.1 [facility] Protein [Mass/Vol] 8.3 g/dL 6.4-8.2 [facility] Sodium [Moles/Vol] 134 mmol/L 136-145 [facility] WBC (Bld) [#/Vol] 11.2 10*3/uL 4.4-11.0 [facility] Beta hCG serum qualOrdered B y: Dr. Johnson on 12-13-2022 Beta HCG ( test) Ql Negative [facility] Bilirubin Test strip Ql (U)O rdered By: Dr. Johnson on 12-13-2022 Bilirubin Ql (U) Negative Negative [facility] Blood erythrocytes count (nu mber/volume)Ordered By: Dr. Johnson on 12-13-2022 RBC (Bld) [#/Vol] 4.65 10*6/uL 4.2-5.4 [facility] Blood hemoglobin measurement (mass/volume)Ordered By: Dr. Johnson on 12-13-2022 Hemoglobin (Bld) [Mass/Vol] 13.6 g/dL 12.0-15.0 [facility] Blood lymphocytes/100 leukoc ytesOrdered By: Dr. Johnson on 12-13-2022 Lymphocytes/100 WBC (Bld) 42.3 % 19-41 [facility] Blood monocytes/100 leukocyt esOrdered By: Dr. Johnson on 12-13-2022 Monocytes/100 WBC (Bld) 7.8 % 0-10 [facility] Blood platelet mean volumeOr dered By: Dr. Johnson on 12-13-2022 Platelet mean volume (Bld) [Entitic vol] 9.4 fL 6.2-12.0 [facility] Determination of erythrocyte mean corpuscular volume (MCV)Ordered By: Dr. Johnson on 12-13-2022 MCV (RBC) [Entitic vol] 90.3 fL 81-99 [facility] Glucose Glucometer (BldC) [M ass/Vol]Ordered By: Dr. Johnson on 12-13-2022 Glucose [Mass/Vol] 122 mg/dL 74-106 [facility] Comment on above: MANAGEMENT OF PATIEN T CARE PER NURSING PROTOCOL Hematocrit Auto (Bld) [Volum e fraction]Ordered By: Dr. Johnson on 12-13-2022 Hematocrit (Bld) [Volume fraction] 42.0 % 37-47 [facility] Ketones Test strip Ql (U)Ord ered By: Dr. Johnson on 12-13-2022 Ketones Ql (U) Negative Negative [facility] [facility] - Chemistry and C hemistry - challengeOrdered By: Dr. Johnson on 12-13-2022 ALP [Catalytic activity/Vol] 59 U/L 45-117 [facility] ALT [Catalytic activity/Vol] 25 U/L 13-56 [facility] CO2 [Moles/Vol] 22.0 mmol/L 21.0-32.0 [facility] Globulin (S) [Mass/Vol] 4.3 g/dL 2.2-4.2 [facility] Urea nitrogen/Creatinine [Mass ratio] 10.4 mg/mg 10-20 [facility] - Drug toxicology Ordered By: Dr. Johnson on 12-13-2022 Amphetamines Ql (U) Negative <1000 ng/mL [facility] Benzodiazepines Ql (U) Negative < 200 ng/mL [facility] Cannabinoids Screen Ql (U) Positive < 50 ng/mL [facility] Cocaine Ql (U) Negative < 300 ng/mL [facility] Opiates Ql (U) Negative < 300 ng/mL [facility] - Hematology and Cell countsOrdered By: Dr. Johnson on 12-13-2022 Erythrocyte distribution width (RBC) [Entitic vol] 39.1 fL 35.1-43.9 [facility] Erythrocyte distribution width (RBC) [Ratio] 12.0 % 11.6-14.6 [facility] Immature granulocytes/100 WBC (Bld) 0.600 % 0.0-0.9 [facility] Comment on above: IG% - Immature Granu locytes (promyelocytes, myelocytes and metamyelocytes) > 1% indicates that a LEFT SHIFT is Present. MCH (RBC) [Entitic mass] 29.2 pg 27.0-32.0 [facility] Nucleated RBC/100 WBC (Bld) [Ratio] 0 % 0-5 [facility] MCHC Auto (RBC) [Mass/Vol]Or dered By: Dr. Johnson on 12-13-2022 MCHC (RBC) [Mass/Vol] 32.4 g/dL 32-36 [facility] Mucus LM Ql (Urine sed)Order ed By: Dr. Johnson on 12-13-2022 Mucus Ql (Urine sed) 0 SEEN /hpf [facility] Nitrite Test strip Ql (U)Ord ered By: Dr. Johnson on 12-13-2022 Nitrite Ql (U) Negative Negative [facility] No Panel InformationOrdered By: Dr. Johnson on 12-13-2022 MDMA (Ecstasy) Screen Negative < 500 ng/mL [facility] Urine Barbiturates Screen Negative < 200 ng/mL [facility] Urine Drug Screen Comment [facility] Comment on above: CONFIRMATORY TESTING FOR ALL [...] Methadone Screen Negative < 300 ng/mL [facility] Estimated Creatinine Clearance Calc 51.95 ml/min [facility] Estimated GFR (MDRD) Amer 67 mL/min >60 [facility] Comment on above: GFR Calc Estimated GFR (MDRD) Non-Af Amer 56 mL/min >60 [facility] Comment on above: Non- GFR Calc Ethyl Alcohol Level 11.0 mg/dL [facility] Comment on above: The serum:whole bloo d ethanol ratio is approximately 1.14and varies slightly with hematocrit. Medical Alcohol reference interval and critical value innon-tolerant individuals; 50 - 100 Impairment 100 Intoxication 100 - 250 Severe Poisoning 250 - 400 Deep/possible fatal coma Troponin I High Sensitivity < 3 pg/mL 3.0-54.0 [facility] Comment on above: Please Note: New Jessica t Units and Gender Specific Reference Ranges. For more information see Policy Stat Procedure [place] High Sensitivity Troponin (TNIH) and attachments. Platelets bldOrdered By: Dr. Johnson on 12-13-2022 Platelets (Bld) [#/Vol] 319 10*3/uL 150-450 [facility] Protein Test strip Ql (U)Ord ered By: Dr. Johnson on 12-13-2022 Protein Ql (U) 30 mg/dl Negative [facility] Serum or plasma albumin reed urement (mass/volume)Ordered By: Dr. Johnson on 12-13-2022 Albumin [Mass/Vol] 4.0 g/dL 3.2-5.0 [facility] Serum or plasma albumin/glob ulin mass ratioOrdered By: Dr. Johnson on 12-13-2022 Albumin/Globulin [Mass ratio] 0.9 {ratio} 0.9-2.4 [facility] Serum or plasma calcium reed urement (mass/volume)Ordered By: Dr. Johnson on 12-13-2022 Calcium [Mass/Vol] 9.1 mg/dL 8.5-10.1 [facility] Serum or plasma creatinine m easurement (mass/volume)Ordered By: Dr. Johnson on 12-13-2022 Creatinine [Mass/Vol] 1.15 mg/dL 0.55-1.02 [facility] Comment on above: The validity of the calculated GFR & GFRAA in patients over 70 years has not been determined. Clinical correlation is essential. Serum or plasma urea nitroge n measurement (mass/volume)Ordered By: Dr. Johnson on 12-13-2022 Urea nitrogen [Mass/Vol] 12 mg/dL 7-18 [facility] Squamous epithelial cells de tection in urine sediment by light microscopyOrdered By: Dr. Johnson on 12-13-2022 Epithelial cells.squamous LM Ql (Urine sed) 0-5 SEEN /hpf 5-10 [facility] Thin prep Papanicolaou smear with manual screeningOrdered By: Dr. Johnson on 12-13-2022 Thin prep Papanicolaou smear with manual screening 19 U/L 15-37 [facility] Thin prep Papanicolaou smear with manual screening 8 5-15 [facility] Urine blood detectionOrdered By: Dr. Johnson on 12-13-2022 RBC Ql (U) 150 /ul Negative [facility] RBC Ql (U) 0-5 SEEN /hpf 0-5 [facility] Urine clarityOrdered By: Dr. Johnson on 12-13-2022 Clarity (U) Clear Clear [facility] Urine color determinationOrd ered By: Dr. Johnson on 12-13-2022 Color (U) Yellow Yellow [facility] Urine glucose detectionOrder ed By: Dr. Johnson on 12-13-2022 Glucose Ql (U) Normal mg/dl Normal [facility] Urine leukocyte esterase det ection by dipstickOrdered By: Dr. Johnson on 12-13-2022 Leukocyte esterase Test strip Ql (U) 25 /ul Negative [facility] Urine pHOrdered By: Dr. Jai lion on 12-13-2022 pH (U) 6.0 [pH] 5.0 - 8.0 [facility] Urine phencyclidine (PCP) de tectionOrdered By: Dr. Johnson on 12-13-2022 Phencyclidine Ql (U) Negative < 25 ng/mL [facility] Urine sediment bacteria coun t by microscopy (number/high power field)Ordered By: Dr. Johnson on 12-13-2022 Bacteria LM.HPF (Urine sed) [#/Area] RARE /hpf None Seen [facility] Urine specific gravity measu rementOrdered By: Dr. Johnson on 12-13-2022 Specific gravity (U) [Rel density] 1.015 1.002-1.030 [facility] Urobilinogen Auto test strip Ql (U)Ordered By: Dr. Johnson on 12-13-2022 Urobilinogen Ql (U) Normal mg/dl Normal [facility] Basophil percentageon 2021 Bilirubin [Mass/Vol] 0.50 mg/dL 0.20-1.00 [facility] Work Phone: Comment on above: For patients on eltr ombopag therapy, use of Dimension [place] TBIL is not recommended. Chloride [Moles/Vol] 105 mmol/L 98-107 [facility] Work Phone: Glucose [Mass/Vol] 87 mg/dL 74-106 [facility] Work Phone: Potassium [Moles/Vol] 3.5 mmol/L 3.5-5.1 [facility] [place] [place] Work Phone: Protein [Mass/Vol] 7.8 g/dL 6.4-8.2 [facility] Work Phone: Sodium [Moles/Vol] 140 mmol/L 136-145 [facility] Work Phone: Laboratory - Chemistry and C hemistry - challengeon 04-29-2022 ALP [Catalytic activity/Vol] 52 U/L 45-117 [facility] Work Phone: ALT [Catalytic activity/Vol] 19 U/L 13-56 [facility] Work Phone: CO2 [Moles/Vol] 28.0 mmol/L 21.0-32.0 [facility] Work Phone: Globulin (S) [Mass/Vol] 4.0 g/dL 2.2-4.2 [facility] Work Phone: Urea nitrogen/Creatinine [Mass ratio] 18.2 mg/mg 10-20 [facility] Work Phone: No Panel Informationon 04-29 Estimated GFR (MDRD) Amer 99 mL/min >60 [facility] Work Phone: Comment on above: GFR Calc Estimated GFR (MDRD) Non-Af Amer 82 mL/min >60 [facility] Work Phone: Comment on above: Non- GFR Calc Thyroid Stimulating Hormone (TSH) 2.92 uIU/mL 0.358-3.74 [facility] Work Phone: Serum or plasma albumin reed urement (mass/volume)on 04-29-2022 Albumin [Mass/Vol] 3.8 g/dL 3.2-5.0 [facility] Work Phone: Serum or plasma albumin/glob ulin mass ratioon 04-29-2022 Albumin/Globulin [Mass ratio] 1.0 {ratio} 0.9-2.4 [facility] Work Phone: Serum or plasma calcium reed urement (mass/volume)on 04-29-2022 Calcium [Mass/Vol] 9.0 mg/dL 8.5-10.1 [facility] [place] [place] Work Phone: Serum or plasma creatinine m easurement (mass/volume)on 04-29-2022 Creatinine [Mass/Vol] 0.83 mg/dL 0.55-1.02 [facility] [place] [place] Work Phone: Comment on above: The validity of the calculated GFR & GFRAA in patients over 70 years has not been determined. Clinical correlation is essential. Serum or plasma urea nitroge n measurement (mass/volume)on 04-29-2022 Urea nitrogen [Mass/Vol] 15 mg/dL 7-18 [facility] Work Phone: Thin prep Papanicolaou smear with manual screeningon 04-29-2022 Thin prep Papanicolaou smear with manual screening 10 U/L 15-37 [facility] Work Phone: Thin prep Papanicolaou smear with manual screening 7 5-15 [facility] Work Phone: BASICMETAon 09-27-2017 BUN/Creatinine Ratio 12.3 mg/mg Normal [facility] Comment on above: Performed By: #### 1 63325, 610147, [id number] ####[facility] [address] [place] [address] Medical Director: Devan Holguin MD eGFR (non-black) mL/min/{1.73_m2} Normal [facility] Comment on above: Result Comment: Afri can Filipino GFR Calc Performed By: #### 1 70617, [id number], [id number] ####[facility] [address]ub[address]cha[address] [place] [address] Medical Director: Devan Holguin MD Result Comment: Non GFR CalcMedical judgement is necessary to interpret GFR. The calculated GFR may not accurately reflect renal status in patients >70 years, women, acutely ill hospitalized patients and patients with acute renal failure or known renal disease.Note:Creatinine clearance (not GFR) should be used for drug dosing. Osmolality 276 mOsm/kg Normal 275-295 [facility] Comment on above: Performed By: #### 1 82417, 703227, [id number] ####[facility] [address]rilcur[address] [place] [address] Medical Director: Devan Holguin MD Calcium 9.0 mg/dL Normal 8.5-10.5 [facility] Comment on above: Performed By: #### 1 44392, 884613, [id number] ####[facility] [address]us[address] [place] [address] Medical Director: Devan Holguin MD Chloride 103 mmol/L Normal 100-109 [facility] Comment on above: Performed By: #### 1 54458, 517464, [id number] ####[facility] [address] [place] [address] Medical Director: Devan Holguin MD CO2 30.1 mmol/L Normal 21.0-32.0 [facility] Comment on above: Performed By: #### 1 75945, 844964, [id number] ####[facility] [address]bsscur[address] [place] [address] Medical Director: Devan Holguin MD Creatinine 0.8 mg/dL Normal 0.6-1.0 [facility] Comment on above: Performed By: #### 1 10145, 447578, [id number] ####[facility] [address] [place] [address] Medical Director: Devan Holguin MD Glucose mass conc 81 mg/dL Normal 72-100 [facility] Comment on above: Result Comment: Luna puncture should occur prior to sulfasalazine administration due to the potential for falsely depressed results. Venipuncture should occur prior to sulfapyridine administration due to the potential falsely elevated results.Baseline assay values before administration of sulfasalazine and sulfapyridine therapy would not be affected. Performed By: #### 1 86593, 146350, [id number] ####[facility] [address]osg[address] [place] [address] Medical Director: Devan Holguin MD Potassium molar conc 4.5 mmol/L Normal 3.5-5.1 [facility] Comment on above: Performed By: #### 1 04942, 557292, [id number] ####[facility] [address] [place] [id number] Medical Director: Devan Holguin MD Sodium 139 mmol/L Normal 135-145 [facility] Comment on above: Performed By: #### 1 54483, 801779, [id number] ####[facility] [address] [place] [address] Medical Director: Devan Holguin MD Urea nitrogen 10 mg/dL Normal 10-20 [facility] Comment on above: Performed By: #### 1 60758, 096116, 2109898 ####[facility] [address]lpgt06678 [place] [address] Medical Director: Devan Holguin MD CBCNDon 09-27-2017 Erythrocyte distribution width Auto Ratio (RBC) 12.5 % Normal 11.5-14.5 [facility] Comment on above: Performed By: #### 1 18548, 562615, 1424452 ####[facility] [address]unwj129[address] [place] [address] Medical Director: Devan Holguin MD Erythrocytes (RBC) 4.60 x10 Normal 4.20-5.40 [facility] Comment on above: Result Comment: Note : RBC morphology is normal unless otherwise stated. Evaluation performed only if differential is requested. Performed By: #### 1 47446, 994825, [id number] ####[facility] [address] [place], [place] [id number]) [phone] Director: Devan Holguin MD Hematocrit (HCT) 41.9 % Normal 36.0-46.0 [facility] Comment on above: Performed By: #### 1 64986, 237466, 2596239 ####[facility] [address] [place] [address] Medical Director: Devan Holguin MD Hemoglobin mass conc (Bld) 14.0 g/dL Normal 12.0-16.0 [facility] Comment on above: Performed By: #### 1 82014, 659386, 3710802 ####[facility] [address]zg39[address] [place] [address] Medical Director: Devan Holguin MD MCH 30.4 pg Normal 27.0-34.0 [facility] Comment on above: Performed By: #### 1 75364, 623183, 6417734 ####[facility] [address] [place] [id number]) [phone] Director: Devan Holguin MD MCHC mass conc (RBC) 33.4 g/dL Normal 32.0-37.0 [facility] Comment on above: Performed By: #### 1 57249, 090907, 2175356 ####[facility] [address] [place] [address] Medical Director: Devan Holguin MD MCV 91.0 fL Normal 80.0-100.0 [facility] Comment on above: Performed By: #### 1 16928, 902557, 2588418 ####[facility] [address]xwegtr[address]27 [place] [address] Medical Director: Dvean Holguin MD Platelet mean volume (PMV) 7.3 fL Low 7.4-10.4 [facility] Comment on above: Performed By: #### 1 49261, 212558, [id number] ####[facility] [address]zrxl[address] [place] [address] Medical Director: Devan Holguin MD Platelets 302 x1000 Normal 150-450 [facility] Comment on above: Performed By: #### 1 43134, 185898, 2798470 ####[facility] [address]vit[address]1945 [place] [address] Medical Director: Devan Holguin MD WBC (Leukocytes) 10.3 x10 Normal 4.5-11.0 [facility] Comment on above: Performed By: #### 1 85878, 701985, 5489210 ####[facility] [address]pa[address]ay44[address] [place] [address] Medical Director: Devan Holguin MD WBC (Leukocytes) 10.3 10*3/uL Normal [facility] Comment on above: Performed By: #### 1 38098, 635153, 3715896 ####[facility] [address] [place] [address] Medical Director: Devan Holguin MD LIPID PNLon 09-27-2017 Calculated LDL Cholesterol 118 mg/dL Normal 60-130 [facility] Comment on above: Result Comment: <100 mg/dl Trsjjeg601-769 mg/dl Near Dzfkouy675-154 mg/dl Borderline Aouo899-742 mg/dl High>=190 mg/dl Very High Performed By: #### 1 69018, 031975, 9104508 ####[facility] [address]absm[address] [place] [address] Medical Director: Devan Holguin MD Cholesterol to HDL Ratio 4.4 {ratio} Normal [facility] Comment on above: Performed By: #### 1 41777, 269123, 6263084 ####[facility] [address]orduqa90334 [place] [address] Medical Director: Devan Holguin MD Cholesterol 185 mg/dL Normal 100-200 [facility] Comment on above: Result Comment: <200 mg/dl Sezzyyqrz884-189 mg/dl Borderline High>= 240 mg/dl High Performed By: #### 1 01037, 460159, [id number] ####[facility] [address]ztx[address] [place] [address] Medical Director: Devan Holguin MD HDL Cholesterol 42 mg/dL Normal 40-60 [facility] Comment on above: Performed By: #### 1 28511, 578480, 9641700 ####[facility] [address] [place] [address] Medical Director: Devan Holguin MD Triglyceride 123 mg/dL Normal 30-150 [facility] Comment on above: Performed By: #### 1 68056, 131603, 1223486 ####[facility] [address] [place] [address] Medical Director: Devan Holguin MD Vital Signs Date Time Vital Sign Value Performing Clinician Faci lity 12-14-2022 00:11-0400 Diastolic blood pressure 60 mm[Hg] [facility] 12-14-2022 00:11-0400 Heart rate 81 /min [facility] 12-14-2022 00:11-0400 Respiratory rate 18 /min [facility] 12-14-2022 00:11-0400 SaO2% (BldA) [Mass fraction] 94 % [facility] 12-14-2022 00:11-0400 Systolic blood pressure 90 mm[Hg] [facility] 12-13-2022 20:21-0400 Body height 157.48 cm [facility] 12-13-2022 20:21-0400 Body mass index (BMI) [Ratio] 35 kg/m2 [facility] 12-13-2022 20:21-0400 Body temperature 98.6 [degF] [facility] 12-13-2022 20:21-0400 Body weight 86.9 kg [facility] Encounters Encounter Date Encounter Type Care Provider Facility Start: 07-15-2025 ambulatory Marli Rupesh Facility :[facility] Start: 06-27-2025 Encounter for gyneco logical examination (general) (routine) without abnormal findings Marli Rupesh [facility] Start: 06-27-2025 End: 06-27-2025 ambulatory Marli Goddard Facility:[facility] Start: 11-03-2023 End: 11-03-2023 ambulatory [facility] Work Phone: Start: 11-03-2023 End: 11-03-2023 Discharged Recurring [facility] Work Phone: Start: 06-20-2023 End: 06-20-2023 ambulatory [facility] Work Phone: Start: 06-20-2023 End: 06-20-2023 Patient encounter procedure [facility] Start: 12-13-2022 End: 12-14-2022 Emergency department patient visit [facility] Start: 04-29-2022 End: 04-29-2022 [facility] Work Phone: Start: 04-29-2022 End: 04-29-2022 Patient encounter procedure [facility] Start: 09-27-2017 End: 09-28-2017 Ambulatory APRIL SCHILLINGI Facility:[id number] Procedures Date Procedure Procedure Detail Performing Clinician Start: 12-13-2022 Plain chest X-ray Plan of Treatment Date Care Activity Detail Author Start: 06-20-2023 Measurement of Borre gregg burgdorferi antibody [facility] Estrogen [Mass/volum e] in Serum or Plasma [facility] Patient Education ED Weakness (U ncertain Cause) ED Dizziness or Syncope ... [facility] Work Phone: Patient referral [facility] Work Phone: [facility] Payers Date Payer Category Payer Self-pay [id number] 2025 Unknown [id number] Unknown [id number] Unknown [id number] Unknown [id number] Social History Date Type Detail Facility Tobacco smoking status NHIS Unknown if ever smoked [facility] Work Phone: Start: 1985 Sex Assigned At Female [facility] Start: 12-13-2022 End: 12-13-2022 Tobacco smoking status NHIS Unknown if ever smoked [facility] NEGATED: Highlighted row [facility] Mental Status Date Assessment Result Facility 12-13-2022 Cognitive function Voice/Name [facility] Work Phone: Discharge summary 11-03-2023 Note Date & Type Note Facility 11-03-2023 Discharge summary Note Date/Time November 03, 2023 8:32am [facility] [address] [place] [address] [address] [place] [address] / REHABILITATION SERVICES DISCHARGE SUMMARY MR#: [id number] Acct: [id number] Name: JESSE BUTLER Rep #: [id number] : 1985 38 From: Coco Rosales Referring DrKendall: SRIKANTH Molina Status: REG R Insurance: [facility] [id number] SELF PAY INSURANCE Discharge Summary D/C summary: [...] Progress: Progressing Plan Plan: 11/03/23: Discharge to [facility]- encouraged to call if questions Initial POC: 1x a week- Focus on HEP-Focus on LE and core strength/stabilization(Ankle Stabilization Ex, Planks, Swazi Ball Exercises, Hamstring Ex)- Posterior Chain D/C Information d/c sentence: If there are questions or concerns regarding this patient's physical therapy, please feel free to call me at [phone]. Thank you for the referral of thispatient. Sincerely, Coco Ramirez, JUWAN Balance/Gait/Functional tests Balance/Special Test Scores Lower Extremity Functional Score: 59 Improvement % Improvement: 70 <Electronically signed by Coco Ramirez DPT> 11/03/23 [id number] CC: SRIKANTH Molina; Dr. Seferino Agrawal MD ~ ELR Signed [facility] Work Phone: Discharge summary 12-13-2022 Note Date & Type Note Facility 12-13-2022 Discharge summary Note Date/Time December 13, 2022 8:44pm [facility] Medical Records Department [address] [place] [address] Emergency Department Summary 12/13/22 MR#: [id number] Acct: [id number] Name: JESSE BUTLER Rep #:[id number] : 1985 37 From: Salvatore Johnson DO [...] fairly diffuse. No urinary or vaginal complaints. [facility] Medical History (Updated 12/13/22 @ 20:25 [...] 45.4 L Lymph % (Auto) 42.3 H Gonzales % (Auto) 7.8 Eos % (Auto) 3.2 [...] Color Urine Clarity Urine pH Ur Specific [place] Urine Protein Urine Glucose (UA) Urine Ketones [...] (Auto) Neut % (Auto) Lymph % (Auto) Gonzales % (Auto) Eos % (Auto) Baso % [...] Color Urine Clarity Urine pH Ur Specific [place] Urine Protein Urine Glucose (UA) Urine Ketones [...] (Auto) Neut % (Auto) Lymph % (Auto) Gonzales % (Auto) Eos % (Auto) Baso % [...] Clarity Clear Urine pH 6.0 Ur Specific [place] 1.015 Urine Protein 30 H Urine Glucose [...] your Primary Care Provider. Call [facility] ([phone]) or report to the closest Emergency Room. Call 911 if necessary. 12/13/222258 <Electronically signed by Salvatore Johnson DO> Cosigner Signature (if applicable): CC: Dr. Seferino Agrawal MD ~ Signed [facility] Work Phone: Evaluation note Note Date & Type Note Facility Evaluation note No assessment information availa ble [facility] Work Phone: Summary Purpose Family History No Family History Records FoundNo Family History Records Found Advance Directives No Advanced Directives Records Found Advance Directive Response Recorded Date/ Time Living Will No December 13, 2022 8:26pm Power of Clinical Quality Rn No December 13 8:26pm Advance Directive Response Recorded Date/ Time Living Will No December 13, 2022 7:26pm Power of Clinical Quality Rn No December 13 7:26pm Chief Complaint and Reason for Visit Chief Complaint altered loc Chief Complaint BILATERAL ANKLE INST ABILITY Additional Source Comments INFORMATION SOURCE (unrecogn ized section and content) DATE CREATED AUTHOR 02/09/2018 [facility] DATE CREATED AUTHOR AUTHOR'S ORGANIZ ATION 07/01/2025 [facility] Goals (unrecognized section and content) Goals [...] BE BASED ON THE PRIMARY CLINICAL RECORDS. [facility] [employer] provides no warranty or guarantee of the accuracy or completeness of information in this [id number]
== END | disposition home or self-care (01) ==
PROVIDERS: PCP Family Medicine; Referring Provider Advanced Practice Midwife; Visit Provider Advanced Practice Midwife
DX: N63.10 Unspecified lump in the right breast, unspecified quadrant (principal); N63.20 Unspecified lump in the left breast, unspecified quadrant
CPT/HCPCS: 76642; 77062; 77066; G0279